=== PATIENT | female | born 1935 | race Asian ===

== ENCOUNTER 2021-06-12 09:36 | Emergency (ER) | payer OTHER ==
--- OUTSIDE RECORDS SUMMARY | 2021-06-12 09:39 | XMS REPORT | Continuity of Care Document ---
:1935 Author Organization [facility] t Address [address] [place] [address] Dr. Willams [address] [place] [id number] Care Team Providers Name Role Phone Unavailable Unavailable Unavailable Payers Payer Name Policy Type Policy Number Effective Date Expiration Date S [facility] [id number] 2021 (MEDICARE 00:00:00 REPLACEMENT HMO) Problems This patient has no known problems. Allergies, Adverse Reactions, Alerts This patient has no known allergies or adverse reactions. Medications This patient has no known medications. Procedures This patient has no known procedures. Encounters Start End Encounter Admission Attending Care Care Encounter Source Date/Time Date/Time Type Type Clinicians Facility Department ID 2021-06-03 2021-06-03 Outpatient DMG DMG [id number] [facility] 09:31:00 09:31:00 1206 [facility] l [facility] Results This patient has no known results.
--- NOTE | 2021-06-12 10:27 | RAD REPORT ---
EXAM DESCRIPTION: RAD - Chest Single View - 06/12/2021 10:15 am CLINICAL HISTORY: CHEST PAIN COMPARISON: No comparisons FINDINGS: Lines: None. Lungs: Irregular airspace opacities in the right upper lobe. Bilateral bronchial wall thickening. The re are a few irregular opacities in the left upper lobe which are nonspecific. Pleural: No significant pleural effusions or pneumothorax. Cardiac: The heart size is within normal limits. Bones: No acute fractures. Other: Atherosclerosis. IMPRESSION: Irregular right upper lobe airspace disease could reflect pneumonia. Recommend 6 week fo llow-up chest radiograph to ensure resolution.
[2021-06-12 10:34] LABS: Protime INR 1.09
[2021-06-12 10:35] LABS: Absolute Lymphocytes (CBC) 0.3 K/uL (0.7-4.9); Basophils % 0.2 % (0-1.3); Hematocrit 31.6 % (36.0-45.0); Lymphocytes % 6.3 % (15.3-44.8); RBC Red Blood Cell Count 3.03 M/uL (3.86-4.86)
[2021-06-12 11:19] LABS: SARS-COV-2 RT PCR NEGATIVE (NEGATIVE)
[2021-06-12 12:44] LABS: ALT/SGPT 36 U/L (12-78); AST/SGOT 34 U/L (15-37); Albumin 2.8 g/dL (3.4-5.0); Alkaline Phosphatase 161 U/L (45-117); BUN Blood Urea Nitrogen 18 mg/dL (7-18); Bicarbonate 23 mmol/L (21-32); Bilirubin Direct 0.6 mg/dL (0-0.2); Bilirubin Total 1.4 mg/dL (0.2-1.0); Glucose Level 184 mg/dL (74-106); Magnesium 2.2 mg/dL (1.8-2.4); NT PRO-BNP 1534 pg/mL (<450); Potassium 4.1 mmol/L (3.5-5.1); Protein, Total 6.3 g/dL (6.4-8.2); Sodium Level 142 mmol/L (136-145); Troponin (Emerg Dept Use Only) < 0.02 ng/mL (0.0-0.045)
[2021-06-12 12:45] LABS: Blood Morphology Comment NOT SEEN (NOT SEEN); Platelet Estimate DECR
[2021-06-12] MEDS ORDERED: CEFTRIAXONE 1000 MG/VIAL ONE (13:12)
[2021-06-12] MEDS ORDERED: NA CHLORIDE 0.9% 100 ML ONE (13:13)
--- NOTE | 2021-06-12 13:16 | ER ---
Nurse's Notes [facility] Name: Edwin Balderas Age: 85 yrs Sex: Female : 1935 Arrival Date: 06/12/2021 Time: 09:44 Bed 17 Private MD: Diagnosis: Unspecified bacterial pneumonia Presentation: 06/12 09:54 Chief complaint: Patient states: Started Jose with "head cold". Cough/congestion ll1 slowly got worse. Fever at night of 101.3. Coronavirus screen: Vaccine status: Patient reports being unvaccinated. Client denies travel out of the [place] in the last 14 days. congestion, cough unrelated to allergies, fatigue, fever, headache, Client presents with at least one sign or symptom that may indicate coronavirus-19. Standard/surgical mask placed on the client. Ebola Screen: Patient denies travel to an Ebola-affected area in the 21 days before illness onset. Initial Sepsis Screen: Does the patient meet any 2 criteria? No. Patient's initial sepsis screen is negative. Does the patient have a suspected source of infection? Yes: Productive cough/pneumonia. Risk Assessment: Do you want to hurt yourself or someone else? Patient reports no desire to harm self or others. Onset of symptoms was June 07, 2021. 09:54 Method Of Arrival: Wheelchair ll1 09:54 Acuity: SHERRY 3 ll1 Triage Assessment: 10:00 General: Appears in no apparent distress. comfortable, Behavior is calm, cooperative, bp appropriate for age. Pain: Complains of pain in head. EENT: Reports nasal congestion. Neuro: Reports headache frontal area. Cardiovascular: No deficits noted. Respiratory: No deficits noted. GI: No signs and/or symptoms were reported involving the gastrointestinal system. : No signs and/or symptoms were reported regarding the genitourinary system. Derm: No deficits noted. Musculoskeletal: No deficits noted. Historical: - Allergies: 09:53 No Known Allergies; ll1 - PMHx: 09:53 liver cirrhosis; Hypertensive disorder; Diabetes mellitus; ll1 - PSHx: 09:53 None; ll1 - Immunization history:: Client reports having NOT received the Covid vaccine. Flu vaccine is not up to date. - Social history:: Smoking status: Patient denies any tobacco usage or history of. Screenin:00 Abuse screen: Denies threats or abuse. Denies injuries from another. Nutritional bp screening: No deficits noted. Tuberculosis screening: No symptoms or risk factors identified. Fall Risk None identified. Assessment: 10:00 General: SEE TRIAGE NOTE. bp 11:00 Reassessment: No changes from previously documented assessment. Patient and/or family bp updated on plan of care and expected duration. Pain level reassessed. 13:00 Reassessment: No changes from previously documented assessment. Patient and/or family bp updated on plan of care and expected duration. Pain level reassessed. PROVIDER AT B/S. 13:44 Reassessment: PT D/C HOME AMBULATORY WITH FAMILY, DX WITH PNEUMONIA. bp Vital Signs: 09:54 BP 142 / 62; Pulse 70; Resp 17; Temp 98.2(O); Pulse Ox 100% on R/A; Weight 50.8 kg; ll1 Height 5 ft. 0 in. (152.40 cm); 11:00 BP 146 / 59; Pulse 67; Resp 22; Pulse Ox 98% ; bp 12:00 BP 144 / 56; Pulse 71; Resp 23; Pulse Ox 96% ; bp 13:00 BP 135 / 53; Pulse 70; Resp 24; Pulse Ox 98% ; bp 09:54 Body Mass Index 21.87 (50.80 kg, 152.40 cm) ll1 ED Course: 09:44 Patient arrived in ED. am2 09:46 Rayshawn Gonzalez, RN is Primary Nurse. bp 09:47 Luis Moore PA is PHCP. [facility] 09:47 Itz Lynn MD is Attending Physician. [facility] 09:53 Arm band placed on Patient placed in an exam room, on a stretcher. ll1 09:56 Triage completed. ll1 10:00 Patient has correct armband on for positive identification. Bed in low position. Call bp light in reach. Side rails up X2. Adult w/ patient. library monitor on. Pulse ox on. NIBP on. 10:15 XRAY Chest (1 view) In Process Unspecified. EDMS 10:15 Inserted saline lock: 20 gauge in right forearm, using aseptic technique. Blood bp collected. 10:38 EKG done, by ED staff, reviewed by Luis DILL. [facility] 13:44 No provider procedures requiring assistance completed. IV discontinued, intact, bp bleeding controlled, No redness/swelling at site. Pressure dressing applied. Patient maintains SpO2 saturation greater than 95% on room air. Administered Medications: 13:10 Drug: Rocephin (cefTRIAXone) 1 grams Route: IV; Rate: calculated rate; Site: right bp forearm; 13:44 Follow up: IV Status: Completed infusion; IV Intake: 100ml bp Intake: 13:44 IV: 100ml; Total: 100ml. bp Outcome: 13:16 Discharge ordered by . pavel 13:44 Discharged to home ambulatory, with family. bp 13:44 Condition: stable 13:44 Discharge instructions given to patient, family, Instructed on discharge instructions, follow up and referral plans. medication usage, Demonstrated understanding of instructions, follow-up care, medications, Prescriptions given X 2. 13:45 Patient left the ED. bp Signatures: Dispatcher [employer] EDMS Luis Moore PA PA jmm Moreno, Amanda am2 Lilliam Alaniz 3 Rayshawn Gonzalez RN RN Keila Yuen RN RN ll1
--- NOTE | 2021-06-12 13:16 | EDPHYS ---
Physician Documentation [facility] Name: Edwin Balderas Age: 85 yrs Sex: Female : 1935 Arrival Date: 06/12/2021 Time: 09:44 Bed 17 Private MD: ED Physician Itz Lynn HPI: 06/12 09:57 This 85 yrs old Female presents to ER via Wheelchair with complaints of Chest jmm Pressure, Headache, Fever. 09:57 The patient or guardian reports cough. Onset: The symptoms/episode began/occurred jmm gradually, 5 day(s) ago. Modifying factors: The symptoms are alleviated by nothing. the symptoms are aggravated by nothing. Associated signs and symptoms: Pertinent positives: chest pain, with cough, with breathing, fever, Pertinent negatives: vomiting. Historical: - Allergies: 09:53 No Known Allergies; ll1 - PMHx: 09:53 liver cirrhosis; Hypertensive disorder; Diabetes mellitus; ll1 - PSHx: 09:53 None; ll1 - Immunization history:: Client reports having NOT received the Covid vaccine. Flu vaccine is not up to date. - Social history:: Smoking status: Patient denies any tobacco usage or history of. ROS: 09:57 Constitutional: Positive for chills, fever. [facility] 09:57 Cardiovascular: Positive for chest pain, with cough. 09:57 Respiratory: Positive for cough, shortness of breath. 09:57 All other systems are negative. Exam: 09:57 Constitutional: This is a well developed, well nourished patient who is awake, alert, jmm and in no acute distress. Head/Face: atraumatic. Eyes: EOMI, no conjunctival erythema appreciated ENT: Moist Mucus Membranes Neck: Trachea midline, Supple 09:57 Abdomen/GI: Non distended, soft Back: Normal ROM 09:57 Chest/axilla: Inspection: normal, Palpation: is normal. 09:57 Cardiovascular: Rate: normal, Rhythm: regular. 09:57 Respiratory: the patient does not display signs of respiratory distress, Respirations: normal, Breath sounds: are clear throughout. 09:57 Skin: Appearance: Color: normal in color. 09:57 Neuro: Motor: is normal. 09:57 Psych: Behavior/mood is pleasant, cooperative. 10:38 ECG was reviewed by the Attending Physician. [facility] Vital Signs: 09:54 BP 142 / 62; Pulse 70; Resp 17; Temp 98.2(O); Pulse Ox 100% on R/A; Weight 50.8 kg; ll1 Height 5 ft. 0 in. (152.40 cm); 11:00 BP 146 / 59; Pulse 67; Resp 22; Pulse Ox 98% ; bp 12:00 BP 144 / 56; Pulse 71; Resp 23; Pulse Ox 96% ; bp 13:00 BP 135 / 53; Pulse 70; Resp 24; Pulse Ox 98% ; bp 09:54 Body Mass Index 21.87 (50.80 kg, 152.40 cm) ll1 MDM: 09:56 Patient medically screened. [facility] 13:15 Data reviewed: vital signs, nurses notes. Counseling: I had a detailed discussion with pavel the patient and/or guardian regarding: the historical points, exam findings, and any diagnostic results supporting the discharge/admit diagnosis, lab results, radiology results, the need for outpatient follow up, to return to the emergency department if symptoms worsen or persist or if there are any questions or concerns that arise at home. ED course: Alert nontoxic in appearance in the ED. No signs of respiratory distress. Patient elected to go home opposed to inpatient admission for observation. Family given strict return precautions. Family understood agrees plan of care.. 06/12 09:50 Order name: Basic Metabolic Panel [facility] 06/12 09:50 Order name: CBC with Diff [facility] 06/12 09:50 Order name: LFT's [facility] 06/12 09:50 Order name: Magnesium [facility] 06/12 09:50 Order name: NT PRO-BNP [facility] 06/12 09:50 Order name: PT-INR; Complete Time: 10:36 [facility] 06/12 09:50 Order name: Troponin (emerg Dept Use Only); Complete Time: 12:46 [facility] 06/12 09:50 Order name: Procalcitonin; Complete Time: 11:14 [facility] 06/12 09:50 Order name: Lactate; Complete Time: 11:14 [facility] 06/12 09:50 Order name: Blood Culture Adult (2) [facility] 06/12 09:50 Order name: Basic Metabolic Panel; Complete Time: 12:46 [facility] 06/12 09:50 Order name: CBC with Automated Diff; Complete Time: 12:46 [facility] 06/12 09:50 Order name: XRAY Chest (1 view); Complete Time: 10:28 [facility] 06/12 09:50 Order name: EKG; Complete Time: 09:51 [facility] 06/12 09:50 Order name: Cardiac monitoring; Complete Time: 10:27 [facility] 06/12 09:50 Order name: EKG - Nurse/Tech; Complete Time: 10:33 [facility] 06/12 09:50 Order name: IV Saline Lock; Complete Time: 10:27 [facility] 06/12 09:50 Order name: Labs collected and sent; Complete Time: 10:26 [facility] 06/12 09:50 Order name: O2 Per Protocol; Complete Time: 10:26 [facility] 06/12 09:50 Order name: O2 Sat Monitoring; Complete Time: 10:26 [facility] 06/12 09:50 Order name: Liver (Hepatic) Function; Complete Time: 12:46 ED[facility] 06/12 09:50 Order name: Magnesium; Complete Time: 12:46 EDMS 06/12 09:50 Order name: NT PRO-BNP; Complete Time: 12:46 EDMS 06/12 09:51 Order name: Urine Culture [facility] 06/12 10:34 Order name: COVID-19/FLU A+B; Complete Time: 11:19 EDMS 06/12 12:45 Order name: Manual Differential; Complete Time: 12:46 EDMS EC:38 Rate is 66 beats/min. Rhythm is regular. QRS Sells is Normal. ME interval is normal. QRS jmm interval is normal. QT interval is normal. No Q waves. T waves are Inverted in lead aVL. No ST changes noted. Administered Medications: 13:10 Drug: Rocephin (cefTRIAXone) 1 grams Route: IV; Rate: calculated rate; Site: right bp forearm; 13:44 Follow up: IV Status: Completed infusion; IV Intake: 100ml bp Disposition Summary: 06/12/21 13:16 Discharge Ordered Location: Home [facility] Condition: Stable [facility] Diagnosis - Unspecified bacterial pneumonia [facility] Followup: pavel - With: Private Physician - When: 2 - 3 days - Reason: Recheck today's complaints, Continuance of care, Re-evaluation by your physician Discharge Instructions: - Discharge Summary Sheet [facility] - Community-Acquired Pneumonia, Adult [facility] Forms: - Medication Reconciliation Form [facility] - Thank You Letter [facility] - Antibiotic Education [facility] - Prescription Opioid Use [facility] Prescriptions: - albuterol sulfate 90 mcg/actuation Inhalation HFA aerosol inhaler - inhale 2 puff by INHALATION route every 4-6 hours; 1 Pump; Refills: 0, Product [facility] Selection Permitted - levofloxacin 750 mg Oral Tablet - take 1 tablet by ORAL route once daily for 10 days; 10 tablet; Refills: 0, [facility] Product Selection Permitted Addendum: 06/15/2021 07:15 Co-signature as Attending Physician, Itz Lynn MD. r n Signatures: Dispatcher [employer] EDMS Luis Moore PA PA jmm Nieto, Roman, MD MD rn Rayshawn Gonzalez, RN RN bp Keila Shepard RN RN ll1 Corrections: (The following items were deleted from the chart) 06/12 10:34 09:51 SARS-COV-2 RT PCR+MOL.LAB.BRZ ordered. EDMS EDMS 10:35 09:51 Influenza Screen (A \T\ B)+BA.LAB.BRZ ordered. EDMS EDMS 13:44 09:50 Urine Dipstick-Ancillary ordered. [facility] bp
[2021-06-12 13:50] VITALS: TEMP 98.2
[2021-06-12 13:54] VITALS: BP 135/53; O2SAT 98
== END 2021-06-12 13:45 | disposition home or self-care (01) ==
LOC: ER 09:36
DX: J15.9 Unspecified bacterial pneumonia (principal); K74.60 Unspecified cirrhosis of liver; I10 Essential (primary) hypertension; E11.9 Type 2 diabetes mellitus without complications; Z20.822 Contact with and (suspected) exposure to COVID-19
CPT/HCPCS: 96365; 93005; 87040 ×2; 85025; 80048; 36415; 83735; 85610; 80076; 83605; 84484; 84145; 83880; 0240U; 71045; 99285

== ENCOUNTER 2021-08-10 11:22 | Inpatient (IN) | payer MEDICARE ==
--- OUTSIDE RECORDS SUMMARY | 2021-08-10 11:24 | XMS REPORT | Continuity of Care Document ---
:1935 Author Organization [facility] t Address [address] [place] [address] Dr. Watkins. [address] [place] [address] Care Team Providers Name Role Phone Pcp, Patient Does Not Have A Primary Care Physician +[id number] Green [employer] Attending Clinician Unknown Attending Clinician Unavailable Keyla Reza MD Attending Clinician Payers Payer Name Policy Type Policy Number Effective Date Expiration Date S [facility] [employer] [id number] 2021 (MEDICARE 00:00:00 REPLACEMENT HMO) Problems Condition Condition Condition Status Onset Resolution Last Treating Co mments Source Name Details Category Date Date Treatment Clinician Date No known No known Disease Unive rs active active ity of problems problems [facility] Allergies, Adverse Reactions, Alerts This patient has no known allergies or adverse reactions. Social History Social Habit Start Date Stop Date Quantity Comments Source Exposure to Not sure [facility] SARS-CoV-2 (event) Medica l Branch Sex Assigned At [birth year] [facility] 00:00:00 00:00:00 Medical Branch Smoking Status Start Date Stop Date Source Unknown if ever smoked [facility] Medications Ordered Filled Start Stop Current Ordering Indication Dosage Frequency Signature Comments Components Source Medication Medication Date Date Medication? Clinician (SIG) Name Name benzonatate Yes [id number] 100mg Take 1 [facility] 100 mg 2-01 capsule by ity of capsule 00:00: mouth [place] 00 every 8 Medical (eight) Branch hours as needed for Cough. Vital Signs Vital Name Observation Time Observation Value Comments Source Diastolic blood 2021-07-30 16:03:00 74 mm[Hg] Unive rsity of [facility] Heart rate 2021-07-30 16:03:00 74 /min [facility] Body temperature 2021-07-30 16:03:00 37.17 [facility] 2021-07-30 16:03:00 20 /min [facility] Body height 2021-07-30 16:03:00 149.9 cm [facility] Body weight 2021-07-30 16:03:00 48.988 kg [facility] BMI 2021-07-30 16:03:00 21.81 kg/m2 [facility] Oxygen saturation in 2021-07-30 16:03:00 95 /min [facility] Arterial blood by [facility] Pulse oximetry [place] Systolic blood 2021-07-30 16:03:00 125 mm[Hg] Univer sity of pressure [facility] Procedures Procedure Date / Time Performing Clinician Source Performed COVID-19 (MOLECULAR 2021-07-30 16:06:00 Edenilson Chi [facility] TESTING [facility] NUCLEIC ACID AMPLIFICATION) LAB ONLY COVID 2021-07-30 16:06:00 Edenilson Chi [facility] o [facility] [place] INTERPRETATION [facility] Encounters Start End Encounter Admission Attending Care Care Encounter Source Date/Time Date/Time Type Type Clinicians Facility Department ID 2021-07-30 2021-07-30 Urgent Green, Nelly [facility] [id number] [facility] 10:00:00 10:05:16 Care Unknown, Attending HEALTH [id number] ity of Eren Reza [id number] [place] ANTHONY?BLEA [id number] Wy dical [address] MEDICAL OFFICE BUILDING 2021-06-03 2021-06-03 Outpatient DMG DMG [id number] [facility] 09:31:00 09:31:00 1206 [facility] l [facility] Results This patient has no known results.
[2021-08-10 12:19] LABS: Absolute Lymphocytes (CBC) 0.2 K/uL (0.7-4.9); Hematocrit 28.9 % (36.0-45.0); Lymphocytes % 3.9 % (15.3-44.8); MPV 9.6 fL (7.6-11.3); Protime INR 1.14; RBC Red Blood Cell Count 2.82 M/uL (3.86-4.86)
--- NOTE | 2021-08-10 12:40 | RAD REPORT ---
EXAM DESCRIPTION: RAD - Chest Single View - 08/10/2021 12:31 pm CLINICAL HISTORY: SOB COMPARISON: Chest Single View dated 08/06/2021; Chest Single View dated 08/04/2021; Chest Single View da abilio 06/12/2021 FINDINGS: Lines: None. Lungs: Background of chronic interstitial changes. Increasing opacification bilaterally, worse on the left. No adelina consolidation. No edema. Pleural: No significant pleural effusions or pneumothorax. Cardiac: Mild cardiomegaly. Bones: No acute fractures. Other: Atherosclerosis . IMPRESSION: Mild increasing airspace disease bilaterally concerning for pneumonia.
[2021-08-10 12:42] LABS: ALT/SGPT 40 U/L (12-78); AST/SGOT 41 U/L (15-37); Albumin 2.2 g/dL (3.4-5.0); Alkaline Phosphatase 188 U/L (45-117); BUN Blood Urea Nitrogen 27 mg/dL (7-18); Bicarbonate 20 mmol/L (21-32); Bilirubin Direct 0.4 mg/dL (0-0.2); Glucose Level 192 mg/dL (74-106); Magnesium 1.8 mg/dL (1.8-2.4); NT PRO-BNP 1612 pg/mL (<450); Potassium 3.8 mmol/L (3.5-5.1); Protein, Total 5.9 g/dL (6.4-8.2); Sodium Level 136 mmol/L (136-145)
[2021-08-10 12:46] LABS: Blood Morphology Comment NOT SEEN (NOT SEEN); Platelet Estimate DECR
[2021-08-10] MEDS ORDERED: METHYLPREDNISOLONE 40 MG INJ ONE (13:38)
--- NOTE | 2021-08-10 14:00 | P.HP ---
Certification for Inpatient Patient admitted to: Inpatient With expected LOS: >2 Midnights Practitioner: I am a practitioner with admitting privileges, knowledge of patient current condition, hospital course, and medical plan of care. Services: Services provided to patient in accordance with Admission requirements found in Title 42 Section 412.3 of the Code of Federal Regulations Patient History Date of Service: 08/10/21 Reason for admission: Shortness of breath History of Present Illness: 86-year-old woman with a history of diabetes and liver cirrhosis was brought to the emergency department due to progressive worsening shortness of breath and cough. Patient has had multiple ED visits for cough and shortness of breath since she was diagnosed with Covid 19 infection on July 16. Daughter report she now has poor oral intake. She denied fever or chest pain. Chest x-ray done in the emergency department demonstrate mild increase in bilateral infiltrate. Patient was hypoxic on room air on arrival and was requiring 4 L of oxygen to maintain SPO2 above 90%. Daughter is concerned that patient have had pneumonia for prolonged period of time. Daughter reports fever at home. Repeat COVID-19 test is pending. UA is positive for nitrite, procalcitonin elevated. Daughter denies any problem with swallowing. She has no leukocytosis, mildly elevated. Patient is hospitalized for further management. - Past Medical/Surgical History -: Liver cirrhosis -: Diabetes -: Back surgery - Social History Smoking Status: Former smoker Alcohol use: No CD- Drugs: No Place of Residence: Home Review of Systems Other: Patient denies any abdominal pain or diarrhea or nausea or vomiting. Except as documented, all other systems reviewed and negative. Physical Examination - Physical Exam General: Alert, In no apparent distress, Oriented x3 HEENT: Atraumatic, PERRLA, Mucous membr. moist/pink, EOMI, Sclerae nonicteric Neck: Supple, JVD not distended Respiratory: Normal air movement, Crackles/rales Cardiovascular: No edema, Regular rate/rhythm, Normal S1 S2, No murmurs Gastrointestinal: Normal bowel sounds, Soft and benign, Non-distended, No tende rness Musculoskeletal: No swelling, No tenderness Integumentary: No rashes, No erythema, No cyanosis Neurological: Normal speech, Normal strength at 5/5 x4 extr, Cranial nerves 3-12 intact Lymphatics: No axilla or inguinal lymphadenopathy - Studies Laboratory Data (last 24 hrs) 08/10/21 11:53: PT 13.1 H, INR 1.14 08/10/21 11:53: WBC 6.20, Hgb 9.7 L, Hct 28.9 L, Plt Count 64 L D 08/10/21 11:53: Sodium 136, Potassium 3.8, BUN 27 H, Creatinine 0.59, Glucose 192 H, Magnesium 1.8, Total Bilirubin 1.0, AST 41 H, ALT 40, Alkaline Phosphatase 188 H Assessment and Plan - Problems (Diagnosis) (1) Pneumonia due to 2019 novel coronavirus Current Visit: Yes Status: Acute (2) Acute respiratory failure with hypoxia Current Visit: Yes Status: Acute (3) Diabetes mellitus type 2 in nonobese Current Visit: Yes Status: Acute (4) Liver cirrhosis Current Visit: Yes Status: Acute (5) UTI (urinary tract infection) Current Visit: Yes Status: Acute (6) Anemia Current Visit: Yes Status: Acute - Plan Admit to the medical floor. Covid protocol initiated with IV steroid. Vitamin C and zinc supplementation. Monitor inflammatory markers. Consult to pulmonary Titrate oxygen. There was a concern for secondary bacterial infection given elevated procalcitonin. There is also some evidence of UTI. Will cover with empiric antibiotics-Levaquin and Rocephin. Follow urine culture. Insulin sliding scale for glucose management. Hold Metformin. Anemia is likely chronic. Monitor CBC. Speech therapy for dysphagia screen. Will consult and resume other home medications. - Advance Directives Does patient have a Living Will: No Does patient have a Durable POA for Healthcare: No
--- NOTE | 2021-08-10 14:06 | EDPHYS ---
Physician Documentation [facility] Name: Edwin Balderas Age: 86 yrs Sex: Female : 1935 Arrival Date: 08/10/2021 Time: 11:23 Bed 2 Private MD: ED Physician Hardik Quintanilla HPI: 08/10 11:40 This 86 yrs old Female presents to ER via Wheelchair with complaints of Weakness, jmm Breathing Difficulty. 11:40 The patient has shortness of breath at rest. jmm 11:40 Onset: The symptoms/episode began/occurred this morning. Duration: The symptoms are jmm continuous, but are steadily getting better. The patient's shortness of breath is aggravated by nothing, is alleviated by nothing. Associated signs and symptoms: Pertinent positives: non-productive cough, Pertinent negatives: fever. The patient has experienced similar episodes in the past. This is an 86-year-old female with history of diabetes mellitus, hypertension, liver cirrhosis the presents emerged department with hypoxia according to the daughter. Daughter states that the patient was difficult to wake up and appeared short of breath earlier today, took pulse oximetry of her mother which revealed her oxygen saturation was in the mid 60s. Daughter states she gave the patient some neb treatments which brant the patient's oxygen saturation into the 70s but decided to bring the patient in. Patient was recently diagnosed with coronavirus and this is her third visit. Is also states the patient is not eating or drinking as much.. Historical: - Allergies: 11:38 Codeine; ph - PMHx: 11:38 diabetes mellitus; Hypertensive disorder; Liver cirrhosis; ph - Immunization history:: Client reports having NOT received the Covid vaccine. - Social history:: Smoking status: Patient denies any tobacco usage or history of. ROS: 11:40 Cardiovascular: Negative for chest pain, palpitations, and edema, Abdomen/GI: Negative jmm for abdominal pain, nausea, vomiting, diarrhea, and constipation. 11:40 Constitutional: Positive for poor PO intake. 11:40 Respiratory: Positive for shortness of breath. 11:40 All other systems are negative. Exam: 11:40 Constitutional: This is a well developed, well nourished patient who is awake, alert, jmm and in no acute distress. Head/Face: atraumatic. Eyes: EOMI, no conjunctival erythema appreciated ENT: Moist Mucus Membranes Neck: Trachea midline, Supple Chest/axilla: Normal chest wall appearance and motion. Cardiovascular: Regular rate and rhythm. No edema appreciated Respiratory: Normal respirations, no respiratory distress appreciated Abdomen/GI: Non distended, soft Back: Normal ROM Skin: General appearance color normal MS/ Extremity: Moves all extremities, no obvious deformities appreciated, no edema noted to the lower extremities Neuro: Awake and alert Psych: Behavior is normal, Mood is normal, Patient is cooperative and pleasant Vital Signs: 11:35 BP 116 / 67; Pulse 82; Resp 26; Temp 98.6(TE); Pulse Ox 82% on R/A; Weight 48.08 kg; ph Height 4 ft. 11 in. (149.86 cm); 12:30 BP 106 / 53; Pulse 80; Resp 20; Pulse Ox 96% on 4 lpm NC; vg1 13:30 BP 100 / 52; Pulse 79; Resp 22; Pulse Ox 96% on 4 lpm NC; vg1 14:30 BP 104 / 54; Pulse 78; Resp 24; Pulse Ox 96% on 4 lpm NC; vg1 15:30 BP 115 / 61; Pulse 74; Resp 24; Pulse Ox 98% on 4 lpm NC; vg1 16:30 BP 106 / 59; Pulse 73; Resp 22; Pulse Ox 99% on 4 lpm NC; vg1 11:35 Body Mass Index 21.41 (48.08 kg, 149.86 cm) ph 11:35 improved to 94% on 2L NC ph MDM: 11:40 Patient medically screened. [facility] 14:04 Data reviewed: vital signs, nurses notes. Counseling: I had a detailed discussion with [facility] the patient and/or guardian regarding: the historical points, exam findings, and any diagnostic results supporting the discharge/admit diagnosis, lab results, radiology results, the need for further work-up and treatment in the hospital. ED course: I discussed the patient with Dr. Marino whom accepted to his service. 08/10 11:54 Order name: Basic Metabolic Panel; Complete Time: 12:42 [facility] 08/10 11:54 Order name: CBC with Diff [facility] 08/10 11:54 Order name: LFT's; Complete Time: 12:42 [facility] 08/10 11:54 Order name: Magnesium; Complete Time: 12:42 [facility] 08/10 11:54 Order name: NT PRO-BNP; Complete Time: 12:42 [facility] 08/10 11:54 Order name: PT-INR; Complete Time: 12:21 [facility] 08/10 11:54 Order name: Troponin HS; Complete Time: 12:42 [facility] 08/10 11:54 Order name: COVID-19/FLU A+B (Document "Date of Onset" if Symptomatic); Complete Time: [facility] 15:00 08/10 11:54 Order name: Lactate; Complete Time: 12:41 [facility] 08/10 11:54 Order name: Blood Culture Adult (2) [facility] 08/10 11:54 Order name: Procalcitonin; Complete Time: 13:13 [facility] 08/10 12:46 Order name: Manual Differential [facility] 08/10 14:59 Order name: Urine Dipstick-Ancillary; Complete Time: 15:00 [facility] 08/10 15:50 Order name: Lactate Sepsis 2 HR Follow-up; Complete Time: 15:53 [facility] 08/10 11:54 Order name: XRAY Chest (1 view); Complete Time: 12:41 [facility] 08/10 11:54 Order name: EKG; Complete Time: 11:54 [facility] 08/10 11:54 Order name: Cardiac monitoring; Complete Time: 12:05 [facility] 08/10 11:54 Order name: EKG - Nurse/Tech; Complete Time: 11:55 [facility] 08/10 11:54 Order name: IV Saline Lock; Complete Time: 12:05 [facility] 08/10 11:54 Order name: Labs collected and sent; Complete Time: 12:05 [facility] 08/10 11:54 Order name: O2 Per Protocol; Complete Time: 12:05 [facility] 08/10 11:54 Order name: O2 Sat Monitoring; Complete Time: 12:05 [facility] 08/10 13:25 Order name: Urine Dipstick-Ancillary (obtain specimen); Complete Time: 14:58 [facility] Administered Medications: 13:40 Drug: SOLU-Medrol (methylPrednisoLONE) 40 mg Route: IVP; Site: right wrist; vg1 15:03 Follow up: Response: No adverse reaction vg1 17:07 Drug: Rocephin (cefTRIAXone) 2 grams Route: IV; Rate: calculated rate; Site: right vg1 wrist; 18:12 Follow up: IV Status: Completed infusion vg1 Disposition Summary: 08/10/21 14:06 Hospitalization Ordered Hospitalization Status: Inpatient Admission [facility] Provider: Adam Marino Location: Telemetry/MedSur (Inpatient) m Condition: Stable jmm Problem: new jmm Symptoms: have improved jmm Bed/Room Type: Standard [facility] Room Assignment: 414(08/10/21 15:42) dw Diagnosis - Coronavirus infection, unspecified - Hypoxia jm Forms: - Medication Reconciliation Form jmm - SBAR form [facility] Addendum: 08/12/2021 06:28 Co-signature as Attending Physician, Hardik Quintanilla MD I agree with the assessment and k dr plan of care. Signatures: Dispatcher [employer] Precious Galvan RN RN dw Rittger, Kevin, MD MD [facility] Luis Moore PA PA jmm Hall, Patricia, RN RN Jessi Quick RN RN vg1 Corrections: (The following items were deleted from the chart) 08/10 15:42 14:06 jmm dw
--- NOTE | 2021-08-10 14:06 | ER ---
Nurse's Notes [facility] Name: Edwin Balderas Age: 86 yrs Sex: Female : 1935 Arrival Date: 08/10/2021 Time: 11:23 Bed 2 Private MD: Diagnosis: Coronavirus infection, unspecified-Hypoxia Presentation: 08/10 11:35 Chief complaint: Patient's son or daughter states: Covid + on 07/30, Spo2 at home low, ph 82% RA upon arrival to ED, pt also tachypneic, daughter reports fever of 100.9 this morning, gave DayQuil. Coronavirus screen: congestion, difficulty breathing, fever, shortness of breath, Client presents with at least one sign or symptom that may indicate coronavirus-19. Standard/surgical mask placed on the client. Provider contacted for isolation considerations. Client reports previous positive COVID test result. Date of collection: July 30, 2021. Ebola Screen: No symptoms or risks identified at this time. No acute neurological deficit is noted. Pre-hospital glucose is not applicable to this patient. Initial Sepsis Screen: Does the patient meet any 2 criteria? No. Patient's initial sepsis screen is negative. Does the patient have a suspected source of infection? Yes: Productive cough/pneumonia. Risk Assessment: Do you want to hurt yourself or someone else? Patient reports no desire to harm self or others. Onset of symptoms was August 10, 2021. 11:35 Method Of Arrival: Wheelchair ph 11:35 Acuity: SHERRY 3 ph Stroke Activation: Symptom onset > 6 hours Physician: Stroke Attending; Name: ; Notified At: ; Arrived At: Physician: Chief Stroke Resident; Name: ; Notified At: ; Arrived At: Physician: Stroke Resident; Name: ; Notified At: ; Arrived At: Physician: ED Attending; Name: ; Notified At: ; Arrived At: Physician: ED Resident; Name: ; Notified At: ; Arrived At: Historical: - Allergies: 11:38 Codeine; ph - PMHx: 11:38 diabetes mellitus; Hypertensive disorder; Liver cirrhosis; ph - Immunization history:: Client reports having NOT received the Covid vaccine. - Social history:: Smoking status: Patient denies any tobacco usage or history of. Screenin:08 Abuse screen: Denies threats or abuse. Nutritional screening: No deficits noted. vg1 Tuberculosis screening: No symptoms or risk factors identified. Fall Risk No fall in past 12 months (0 pts). No secondary diagnosis (0 pts). IV access (20 points). Ambulatory Aid- None/Bed Rest/Nurse Assist (0 pts). Gait- Normal/Bed Rest/Wheelchair (0 pts) Mental Status- Oriented to own ability (0 pts). Total Domínguez Fall Scale indicates No Risk (0-24 pts). Assessment: 11:30 General: Appears in no apparent distress. comfortable, Behavior is calm, cooperative. vg1 Pain: Denies pain. Neuro: Level of Consciousness is awake, alert, obeys commands, Oriented to person, place, time, situation. Cardiovascular: Patient's skin is warm and dry. Respiratory: Airway is patent Respiratory effort is even, unlabored, Respiratory pattern is tachypnea Parent/caregiver reports the patient having cough that is tested positive for covid on July 30 and was recently seen in ED on 08/06/2021. GI: No signs and/or symptoms were reported involving the gastrointestinal system. : No signs and/or symptoms were reported regarding the genitourinary system. EENT: No signs and/or symptoms were reported regarding the EENT system. Derm: Skin is intact, Skin is pink, warm \T\ dry. Musculoskeletal: Circulation, motion, and sensation intact. 13:32 Reassessment: Patient appears in no apparent distress at this time. No changes from vg1 previously documented assessment. Patient and/or family updated on plan of care and expected duration. Pain level reassessed. Patient is alert, oriented x 3, equal unlabored respirations, skin warm/dry/pink. Patient denies pain at this time. 14:35 Reassessment: Patient appears in no apparent distress at this time. No changes from vg1 previously documented assessment. 15:30 Reassessment: Patient appears in no apparent distress at this time. No changes from vg1 previously documented assessment. Patient and/or family updated on plan of care and expected duration. Pain level reassessed. Patient is alert, oriented x 3, equal unlabored respirations, skin warm/dry/pink. 16:38 Reassessment: Patient appears in no apparent distress at this time. No changes from vg1 previously documented assessment. Patient and/or family updated on plan of care and expected duration. Pain level reassessed. pt resting with eyes closed Patient denies pain at this time. Vital Signs: 11:35 BP 116 / 67; Pulse 82; Resp 26; Temp 98.6(TE); Pulse Ox 82% on R/A; Weight 48.08 kg; ph Height 4 ft. 11 in. (149.86 cm); 12:30 BP 106 / 53; Pulse 80; Resp 20; Pulse Ox 96% on 4 lpm NC; vg1 13:30 BP 100 / 52; Pulse 79; Resp 22; Pulse Ox 96% on 4 lpm NC; vg1 14:30 BP 104 / 54; Pulse 78; Resp 24; Pulse Ox 96% on 4 lpm NC; vg1 15:30 BP 115 / 61; Pulse 74; Resp 24; Pulse Ox 98% on 4 lpm NC; vg1 16:30 BP 106 / 59; Pulse 73; Resp 22; Pulse Ox 99% on 4 lpm NC; vg1 11:35 Body Mass Index 21.41 (48.08 kg, 149.86 cm) ph 11:35 improved to 94% on 2L NC ph ED Course: 11:23 Patient arrived in ED. rg4 11:27 Luis Moore PA is PHCP. jmm 11:27 Hardik Quintanilla MD is Attending Physician. jmm 11:30 Jessi Quick, RN is Primary Nurse. vg1 11:30 Patient has correct armband on for positive identification. Placed in gown. Bed in low vg1 position. Call light in reach. Side rails up X2. Adult w/ patient. 11:38 Triage completed. ph 11:38 Arm band placed on Patient placed in an exam room, on a stretcher, on oxygen. ph 11:53 Initial lab(s) drawn, by me, sent to lab. First set of blood cultures drawn by me. vg1 11:55 EKG done, by ED staff, reviewed by Luis DILL. mb7 12:08 Inserted saline lock: 22 gauge in right wrist, using aseptic technique. Blood collected.vg1 12:31 XRAY Chest (1 view) In Process Unspecified. EDMS 14:05 Adam Marino is Hospitalizing Provider. jmm Administered Medications: 13:40 Drug: SOLU-Medrol (methylPrednisoLONE) 40 mg Route: IVP; Site: right wrist; vg1 15:03 Follow up: Response: No adverse reaction vg1 17:07 Drug: Rocephin (cefTRIAXone) 2 grams Route: IV; Rate: calculated rate; Site: right vg1 wrist; 18:12 Follow up: IV Status: Completed infusion vg1 Outcome: 14:06 Decision to Hospitalize by Provider. pavel 18:12 Patient left the ED. vg1 Signatures: Dispatcher [employer] EDMS Luis Moore PA PA jmm Hall, Patricia RN RN Lisa [email or web address] Jessi Quick RN RN 1 Kavita Paulino mb7 Corrections: (The following items were deleted from the chart) 16:42 16:30 BP 106 / 59; Pulse 73bpm; Resp 16bpm; Pulse Ox 99% 4 lpm Nasal Cannula; vg1 vg1
[2021-08-10 14:43] LABS: SARS-COV-2 RT PCR POSITIVE (NEGATIVE)
[2021-08-10 14:58] LABS: Urine Blood Negative (Negative); Urine Glucose Negative (Negative); Urine Protein 1+ (Negative); Urine Specific Gravity 1.015 (1.005-1.030); Urine pH 6.5 (5.0-7.0)
[2021-08-10] MEDS ORDERED: CEFTRIAXONE 1000 MG/VIAL ONE (16:58)
[2021-08-10] MEDS ORDERED: NA CHLORIDE 0.9% 100 ML IV ONE (16:59)
[2021-08-10] MEDS ORDERED: ONDANSETRON 4 MG/2 ML VIAL IV PRN (19:12)
[2021-08-10] MEDS ORDERED: Levofloxacin 750mg IV 750 MG/150 ML BAG IV SCH (19:12)
[2021-08-10] MEDS ORDERED: GLUCAGON 1 MG/VIAL IM PRN (19:12)
[2021-08-10] MEDS ORDERED: ACETAMINOPHEN 500 MG TAB PO PRN (19:12)
[2021-08-10] MEDS ORDERED: D50W 25 GM/50 ML SYRINGE IV PRN (19:12)
[2021-08-10 19:54] VITALS: BMI 21.4
[2021-08-10] MEDS: METHYLPREDNISOLONE 40 MG INJ IV SCH (20:16)
[2021-08-10] MEDS: FAMOTIDINE 20 MG/2 ML VIAL IV SCH (20:16)
[2021-08-10] MEDS: ASCORBIC ACID 500 MG TABLET PO SCH (20:17)
[2021-08-10] MEDS: INSULIN -REGULAR HUMAN 50 UNIT/0.5 ML ML SQ SCH ×2 (21:00→21:19)
[2021-08-11 05:20] LABS: Absolute Lymphocytes (CBC) 0.1 K/uL (0.7-4.9); Hematocrit 29.7 % (36.0-45.0); Lymphocytes % 7.7 % (15.3-44.8); RBC Red Blood Cell Count 2.92 M/uL (3.86-4.86)
[2021-08-11 05:41] LABS: ALT/SGPT 34 U/L (12-78); AST/SGOT 26 U/L (15-37); Albumin 2.1 g/dL (3.4-5.0); Alkaline Phosphatase 174 U/L (45-117); BUN Blood Urea Nitrogen 19 mg/dL (7-18); Bicarbonate 23 mmol/L (21-32); Bilirubin Total 0.7 mg/dL (0.2-1.0); Ferritin 732.8 ng/mL (8-388); Glucose Level 185 mg/dL (74-106); HDL Cholesterol 45 mg/dL (40-60); LDL Cholesterol, Calculated 24 (<130); Magnesium 2.1 mg/dL (1.8-2.4); Phosphorus 2.9 mg/dL (2.5-4.9); Potassium 4.1 mmol/L (3.5-5.1); Protein, Total 5.8 g/dL (6.4-8.2); Sodium Level 139 mmol/L (136-145)
[2021-08-11] MEDS: INSULIN -REGULAR HUMAN 50 UNIT/0.5 ML ML SQ SCH ×4 (08:30→21:30)
[2021-08-11] MEDS ORDERED: ENOXAPARIN 40 MG/0.4 ML SQ SCH (09:00)
[2021-08-11] MEDS ORDERED: CEFTRIAXONE 1,000 MG in NA CHLORIDE 0.9% 50 ML IVPB SCH (09:00)
[2021-08-11] MEDS: METHYLPREDNISOLONE 40 MG INJ IV SCH ×2 (09:09→20:32)
[2021-08-11] MEDS: ASCORBIC ACID 500 MG TABLET PO SCH ×2 (09:11→20:33)
[2021-08-11] MEDS: ZINC SULFATE 220 MG CAP PO SCH (09:11)
[2021-08-11] MEDS: VITAMIN D 5,000 UNIT CAP PO SCH (09:11)
[2021-08-11] MEDS: FAMOTIDINE 20 MG/2 ML VIAL IV SCH ×2 (09:11→20:33)
--- NOTE | 2021-08-11 09:53 | P.CNS ---
Date of Consult: 08/11/21 Reason for Consult: Coronavirus pneumonia Chief Complaint: Shortness of breath cough History of Present Illness: Patient is 86 years of age diabetes liver cirrhosis admitted with worsening dyspnea shortness of breath cough diagnosed with coronavirus not eating and drinking currently doing okay eating her breakfast Allergies No Known Allergies Allergy (Unverified 08/10/21 19:11) - Past Medical/Surgical History -: Liver cirrhosis -: Diabetes -: Back surgery - Social History Alcohol use: No CD- Drugs: No Place of Residence: Home Review of Systems is unable to be obtained Physical Examination Temp Pulse Resp BP Pulse Ox 97.5 F 74 18 124/68 93 08/11/21 08:00 08/11/21 08:00 08/11/21 08:00 08/11/21 08:00 08/11/21 08:00 General: Alert, Mild distress Respiratory: Clear to auscultation bilaterally, Diminished Cardiovascular: No edema, Regular rate/rhythm Laboratory Data (last 24 hrs) 08/10/21 11:53: PT 13.1 H, INR 1.14 08/10/21 11:53: WBC 6.20, Hgb 9.7 L, Hct 28.9 L, Plt Count 64 L D 08/10/21 11:53: Sodium 136, Potassium 3.8, BUN 27 H, Creatinine 0.59, Glucose 192 H, Magnesium 1.8, Total Bilirubin 1.0, AST 41 H, ALT 40, Alkaline Phosphatase 188 H - Problems (1) Pneumonia due to 2019 novel coronavirus Current Visit: Yes Status: Acute Plan: Patient is 86 years of age admitted with diffuse bilateral infiltrates she has pneumonia due to coronavirus complaining of cough add nebulized budesonide oxygenation satisfactory she is on 2 L 94% sat patient is white count has declined continue with IV levofloxacin DC Rocephin blood cultures are pending continue with steroid
[2021-08-11 14:45] LABS: White Blood Cell Scan OK (OK)
[2021-08-11 14:46] LABS: Blood Morphology Comment NOT SEEN (NOT SEEN); Platelet Estimate DECR
[2021-08-11] MEDS: AZATHIOPRINE 50 MG TABLET PO SCH (15:22)
[2021-08-11] MEDS ORDERED: BUDESONIDE, MICRONIZED 3 MG CAP PO SCH (15:22)
--- NOTE | 2021-08-11 15:34 | P.PN ---
Subjective Date of Service: 08/11/21 Chief Complaint: Shortness of breath cough Patient is doing better today. She is currently tolerating 2 L oxygen by nasal cannula. Not in distress. Physical Examination - Vital Signs Temperature: 98.0 F Blood Pressure: 113/56 Pulse: 76 Respirations: 18 Pulse Ox (%): 93 - Physical Exam General: In no apparent distress, Other (Awake and communicates meaningfully) HEENT: Mucous membr. moist/pink Neck: JVD not distended Respiratory: Crackles/rales Cardiovascular: No edema, Regular rate/rhythm, Normal S1 S2 Gastrointestinal: Soft and benign, Non-distended Musculoskeletal: No swelling Integumentary: No rashes, No erythema Neurological: Other (No focal motor deficit) Assessment And Plan - Current Problems (Diagnosis) (1) Pneumonia due to 2019 novel coronavirus Current Visit: Yes Status: Acute (2) Acute respiratory failure with hypoxia Current Visit: Yes Status: Acute (3) Diabetes mellitus type 2 in nonobese Current Visit: Yes Status: Acute (4) Liver cirrhosis Current Visit: Yes Status: Acute (5) UTI (urinary tract infection) Current Visit: Yes Status: Acute (6) Anemia Current Visit: Yes Status: Acute (7) Neutropenia Current Visit: Yes Status: Acute - Plan Continue IV steroid. Vitamin C and zinc supplementation. Monitor inflammatory markers. Pulmonary input appreciated. Wean oxygen as tolerated There was a concern for secondary bacterial infection given elevated procalcitonin. There is also some evidence of UTI. Continue IV Levaquin. Follow urine culture. Insulin sliding scale for glucose management. Hold Metformin. Anemia is likely chronic. Monitor CBC. Speech therapy for dysphagia screen. Patient with neutropenia. Monitor CBC to follow leukopenia. Resume other home medications.
[2021-08-12 03:45] LABS: Absolute Lymphocytes (CBC) 0.2 K/uL (0.7-4.9); Hematocrit 28.9 % (36.0-45.0); Lymphocytes % 3.7 % (15.3-44.8); MPV 9.3 fL (7.6-11.3); RBC Red Blood Cell Count 2.84 M/uL (3.86-4.86)
[2021-08-12 03:54] LABS: C-Reactive Protein 62.5 mg/L (<3.00); Ferritin 688.7 ng/mL (8-388)
[2021-08-12 05:16] LABS: Blood Morphology Comment NOT SEEN (NOT SEEN); Platelet Estimate DECR; White Blood Cell Scan OK (OK)
[2021-08-12] MEDS: ZINC SULFATE 220 MG CAP PO SCH (08:10)
[2021-08-12] MEDS: SOLIFENACIN SUCCIN 5 MG TAB PO SCH (08:10)
[2021-08-12] MEDS: MULTIVITAMIN TAB PO SCH (08:10)
[2021-08-12] MEDS: ASCORBIC ACID 500 MG TABLET PO SCH ×2 (08:10→21:00)
[2021-08-12] MEDS: ROSUVASTATIN 10 MG TAB PO SCH (08:10)
[2021-08-12] MEDS: FAMOTIDINE 20 MG/2 ML VIAL IV SCH ×2 (08:11→21:00)
[2021-08-12] MEDS: VITAMIN D 5,000 UNIT CAP PO SCH (08:11)
[2021-08-12] MEDS: METHYLPREDNISOLONE 40 MG INJ IV SCH ×2 (08:11→21:00)
[2021-08-12] MEDS: INSULIN -REGULAR HUMAN 50 UNIT/0.5 ML ML SQ SCH ×4 (08:11→21:00)
[2021-08-12] MEDS: AZATHIOPRINE 50 MG TABLET PO SCH (08:12)
[2021-08-12] MEDS: ENTOCORT 3 MG PO SCH (08:13)
[2021-08-12] MEDS ORDERED: TIMOLOL MALEATE 0.5% OPTH 5 ML BTL OPTH SCH (09:00)
[2021-08-12] MEDS: CALCIUM CARBONATE CHEW 500MG TAB PO SCH (12:06)
--- NOTE | 2021-08-12 18:35 | P.PN ---
Subjective Date of Service: 08/12/21 Chief Complaint: Shortness of breath cough Patient stated she feels much better today She is comfortable on 2 L oxygen by nasal cannula. She desaturated to 80% with exertion. Physical Examination - Vital Signs Temperature: 98.7 F Blood Pressure: 113/53 Pulse: 65 Respirations: 24 Pulse Ox (%): 95 - Physical Exam General: Alert, In no apparent distress, Oriented x3 HEENT: Mucous membr. moist/pink Neck: JVD not distended Respiratory: Crackles/rales Cardiovascular: No edema, Regular rate/rhythm, Normal S1 S2 Gastrointestinal: Soft and benign, Non-distended Musculoskeletal: No swelling Integumentary: No rashes Neurological: Normal strength at 5/5 x4 extr Assessment And Plan - Current Problems (Diagnosis) (1) Pneumonia due to 2019 novel coronavirus Current Visit: Yes Status: Acute (2) Acute respiratory failure with hypoxia Current Visit: Yes Status: Acute (3) Diabetes mellitus type 2 in nonobese Current Visit: Yes Status: Acute (4) Liver cirrhosis Current Visit: Yes Status: Acute (5) UTI (urinary tract infection) Current Visit: Yes Status: Acute (6) Anemia Current Visit: Yes Status: Acute (7) Neutropenia Current Visit: Yes Status: Acute - Plan Continue IV steroid. Vitamin C and zinc supplementation. Monitor inflammatory markers. Pulmonary input appreciated. Wean oxygen as tolerated There was a concern for secondary bacterial infection given elevated procalcitonin. There is also some evidence of UTI. Continue IV Levaquin. Insulin sliding scale for glucose management. Hold Metformin. Anemia is likely chronic. Monitor CBC. No dysphagia Leukopenia resolved. Continue other home medications.
[2021-08-12] MEDS ORDERED: Levofloxacin 750mg IV 750 MG/150 ML BAG IV SCH (21:00)
[2021-08-12] MEDS: GLUCERNA SHAKE 237 ML CAN PO SCH (21:00)
[2021-08-13 03:55] LABS: Absolute Lymphocytes (CBC) 0.1 K/uL (0.7-4.9); Hematocrit 30.3 % (36.0-45.0); MPV 9.6 fL (7.6-11.3); RBC Red Blood Cell Count 2.98 M/uL (3.86-4.86)
[2021-08-13 04:15] LABS: C-Reactive Protein 29.2 mg/L (<3.00); Ferritin 616.7 ng/mL (8-388)
[2021-08-13 04:24] VITALS: BP 157/74; TEMP 97.7
[2021-08-13] MEDS: INSULIN -REGULAR HUMAN 50 UNIT/0.5 ML ML SQ SCH ×2 (07:30→11:30)
[2021-08-13] MEDS: GLUCERNA SHAKE 237 ML CAN PO SCH (09:00)
[2021-08-13] MEDS: ENTOCORT 3 MG PO SCH (09:00)
[2021-08-13] MEDS ORDERED: TIMOLOL MALEATE 0.5% OPTH 5 ML BTL OPTH SCH (09:00)
[2021-08-13 09:08] VITALS: O2SAT 94
[2021-08-13] MEDS: CALCIUM CARBONATE CHEW 500MG TAB PO SCH (09:17)
[2021-08-13] MEDS: ROSUVASTATIN 10 MG TAB PO SCH (09:17)
[2021-08-13] MEDS: MULTIVITAMIN TAB PO SCH (09:17)
[2021-08-13] MEDS: METHYLPREDNISOLONE 40 MG INJ IV SCH (09:17)
[2021-08-13] MEDS: VITAMIN D 5,000 UNIT CAP PO SCH (09:18)
[2021-08-13] MEDS: SOLIFENACIN SUCCIN 5 MG TAB PO SCH (09:18)
[2021-08-13] MEDS: ASCORBIC ACID 500 MG TABLET PO SCH (09:18)
[2021-08-13] MEDS: AZATHIOPRINE 50 MG TABLET PO SCH (09:18)
[2021-08-13] MEDS: ZINC SULFATE 220 MG CAP PO SCH (09:20)
[2021-08-13] MEDS: FAMOTIDINE 20 MG/2 ML VIAL IV SCH (09:20)
--- NOTE | 2021-08-13 12:01 | P.PN ---
Subjective Date of Service: 08/13/21 Chief Complaint: Coronavirus pneumonia Subjective: Improving (Patient is improving still complaining of cough feeling weak) Review of Systems General: Weakness Respiratory: Shortness of Breath Physical Examination - Vital Signs Temperature: 97.7 F Blood Pressure: 157/74 Pulse: 66 Respirations: 20 Pulse Ox (%): 93 - Physical Exam General: Alert, Cooperative, Mild distress Respiratory: Clear to auscultation bilaterally, Diminished Cardiovascular: No edema, Normal S1 S2 Assessment And Plan - Current Problems (Diagnosis) (1) Pneumonia due to 2019 novel coronavirus Current Visit: Yes Status: Acute Plan: Patient is doing much better improving blood cultures are negative to p.o. levofloxacin plan for discharge and discharged home on levofloxacin and steroids follow-up with me in 2 weeks
--- NOTE | 2021-08-13 14:08 | P.DS ---
Admission Date: 08/10/21 Discharge Date: 08/13/21 Disposition: ROUTINE DISCHARGE Discharge Condition: FAIR Reason for Admission: Coronavirus pneumonia - Problems (1) Pneumonia due to 2019 novel coronavirus Status: Acute (2) Acute respiratory failure with hypoxia Status: Acute (3) Diabetes mellitus type 2 in nonobese Status: Acute (4) Liver cirrhosis Status: Acute (5) UTI (urinary tract infection) Status: Acute (6) Anemia Status: Acute (7) Neutropenia Status: Acute Brief History of Present Illness: 86-year-old woman with a history of diabetes and liver cirrhosis was brought to the emergency department due to progressive worsening shortness of breath and cough. Patient has had multiple ED visits for cough and shortness of breath since she was diagnosed with Covid 19 infection on July 16. Daughter report she now has poor oral intake. She denied fever or chest pain. Chest x-ray done in the emergency department demonstrate mild increase in bilateral infiltrate. Patient was hypoxic on room air on arrival and was requiring 4 L of oxygen to maintain SPO2 above 90%. Daughter was concerned that patient have had pneumonia for prolonged period of time. Daughter reports fever at home. Repeat COVID-19 test is pending. UA is positive for nitrite, procalcitonin elevated. Daughter denies any problem with swallowing. She has no leukocytosis. Patient is hospitalized for further management. Hospital Course: Patient admitted the medical floor and treated for COVID pneumonia with IV steroid, vitamin supplementation. Patient improved with treatment and oxygen weaned down to 2 L. Her oral intake improved, patient became more interactive. Seen by pulmonary who assisted with management of the Covid pneumonia. UA suggested UTI, blood cultures yielded no growth. Patient completed IV Levaquin for UTI treatment. Speech therapy saw patient and she had no dysphagia. Patient has clinically improved, her respiratory status has been stable. She ambulated several feet on 2 L of oxygen by nasal cannula during PT. She is discharged with a tapering dose of steroid. Vital Signs/Physical Exam: Temp Pulse Resp BP Pulse Ox 97.7 F 66 20 157/74 H 93 08/13/21 12:03 08/13/21 12:03 08/13/21 12:03 08/13/21 12:03 08/13/21 12:03 General: Alert, In no apparent distress, Oriented x3 HEENT: Mucous membr. moist/pink, Sclerae nonicteric Neck: Supple, JVD not distended Respiratory: Crackles/rales (Bilateral) Cardiovascular: No edema, Normal S1 S2, Irregular heart rate/rhythm Gastrointestinal: Soft and benign, Non-distended, No tenderness Musculoskeletal: No swelling Integumentary: No rashes, No cyanosis Neurological: Normal strength at 5/5 x4 extr Laboratory Data at Discharge: WBC 4.10 K/uL (4.3-10.9) L 08/13/21 03:25 Hgb 10.1 g/dL (12.0-15.0) L 08/13/21 03:25 Hct 30.3 % (36.0-45.0) L 08/13/21 03:25 Plt Count 62 K/uL (152-406) L 08/13/21 03:25 PT 13.1 SECONDS (9.5-12.5) H 08/10/21 11:53 INR 1.14 08/10/21 11:53 Sodium 139 mmol/L (136-145) 08/11/21 05:13 Potassium 4.1 mmol/L (3.5-5.1) 08/11/21 05:13 BUN 19 mg/dL (7-18) H 08/11/21 05:13 Creatinine 0.36 mg/dL (0.55-1.3) L 08/11/21 05:13 Glucose 185 mg/dL (74-106) H 08/11/21 05:13 Phosphorus 2.9 mg/dL (2.5-4.9) 08/11/21 05:13 Magnesium 2.1 mg/dL (1.8-2.4) 08/11/21 05:13 Total Bilirubin 0.7 mg/dL (0.2-1.0) 08/11/21 05:13 AST 26 U/L (15-37) 08/11/21 05:13 ALT 34 U/L (12-78) 08/11/21 05:13 Alkaline Phosphatase 174 U/L (45-117) H 08/11/21 05:13 Triglycerides 100 mg/dL (<150) 08/11/21 05:13 Cholesterol 89 mg/dL (<200) 08/11/21 05:13 HDL Cholesterol 45 mg/dL (40-60) 08/11/21 05:13 Cholesterol/HDL Ratio 1.98 08/11/21 05:13 Home Medications: Budesonide [Budesonide Dr] 3 mg PO DAILY 08/11/21 Calcium Carbonate [Calcium] 2,000 mg PO DAILY 08/11/21 Cholecalciferol (Vitamin D3) [Vitamin D 1000 Iu Tab*] 1,000 unit PO DAILY 08/11/21 Metformin HCl [Glucophage*] 500 mg PO BID 08/11/21 Multivitamin 1 each PO DAILY 08/11/21 Rosuvastatin Calcium 5 mg PO DAILY 08/11/21 Solifenacin [Vesicare*] 10 mg PO DAILY 08/11/21 Timolol Maleate/Pf [Timolol Maleate 0.5% Eye Drop] 1 each OP DAILY 08/11/21 azaTHIOprine [Azathioprine] 75 mg PO DAILY 08/11/21 Ascorbic Acid [Vitamin C*] 1,000 mg PO BID #120 tablet 08/13/21 Glucerna Shake [Glucerna*] 237 ml PO BID #60 can 08/13/21 Zinc Sulfate [Zinc Sulfate*] 220 mg PO DAILY #30 cap 08/13/21 predniSONE [Deltasone] 20 mg PO BID #15 tab 08/13/21 New Medications: Glucerna Shake [Glucerna*] 237 ml PO BID #60 can predniSONE [Deltasone] 20 mg PO BID #15 tab Ascorbic Acid [Vitamin C*] 1,000 mg PO BID #120 tablet Zinc Sulfate [Zinc Sulfate*] 220 mg PO DAILY #30 cap Diet: AHA Activity: Fall precautions Followup: NONE,NONE [Primary Care Provider] - 1-2 Weeks (Call to schedule an appointment.) Time spent managing pt's care (in minutes): 39
[2021-08-13] MEDS ORDERED: predniSONE 20 MG TAB PO SCH (21:00)
[2021-08-14] MEDS ORDERED: levoFLOXacin 750 MG TAB PO SCH (09:00)
== END 2021-08-13 12:50 | disposition home or self-care (01) | DRG 177 ==
LOC: ER 11:22 → ERHOLD 13:52 → 4TH 16:36
PROVIDERS: ADMIT Internal Medicine; ATTEND Internal Medicine
DX: U07.1 COVID-19 (principal); J12.82 Pneumonia due to coronavirus disease 2019; J96.01 Acute respiratory failure with hypoxia; N39.0 Urinary tract infection, site not specified; E11.9 Type 2 diabetes mellitus without complications; K74.60 Unspecified cirrhosis of liver; D64.9 Anemia, unspecified; D70.9 Neutropenia, unspecified
CPT/HCPCS: 0240U; 36415; 71045; 80048; 80053; 80061; 80076; 81003; 82728; 82947; 83605; 83735; 83880; 84100; 84145; 84484; 85025; 85379; 85610; 86140; 87040; 92610; 93005; 94760; 96365; 96375; 97116; 97161; 99284; J2920; J7500

== ENCOUNTER 2021-08-17 10:04 | Inpatient (IN) | payer MEDICARE ==
--- OUTSIDE RECORDS SUMMARY | 2021-08-17 10:06 | XMS REPORT | Continuity of Care Document ---
:1935 Author Organization [facility] t Address [address] [place] [address] [address] [place] [address] Care Team Providers Name Role Phone Pcp, Patient Does Not Have A Primary Care Physician +[id number] [employer] Attending Clinician Unknown Attending Clinician Unavailable Keyla Reza MD Attending Clinician Payers Payer Name Policy Type Policy Number Effective Date Expiration Date S [facility] [employer] [id number] (MEDICARE 00:00:00 REPLACEMENT HMO) Problems Condition Condition Condition Status Onset Resolution Last Treating Co mments Source Name Details Category Date Date Treatment Clinician Date No known No known Disease Unive rs active active ity of problems problems [facility] Allergies, Adverse Reactions, Alerts This patient has no known allergies or adverse reactions. Social History Social Habit Start Date Stop Date Quantity Comments Source Exposure to Not sure [facility] SARS-CoV-2 (event) Medica l Branch Sex Assigned At [address] 1935 [facility] 00:00:00 00:00:00 Medical Branch Smoking Status Start Date Stop Date Source Unknown if ever smoked [facility] Medications Ordered Filled Start Stop Current Ordering Indication Dosage Frequency Signature Comments Components Source Medication Medication Date Date Medication? Clinician (SIG) Name Name benzonatate Yes [id number] 100mg Take 1 [facility] 100 mg 2-01 capsule by ity of capsule 00:00: mouth [place] 00 every 8 Medical (eight) Branch hours as needed for Cough. Vital Signs Vital Name Observation Time Observation Value Comments Source Systolic blood 2021-07-30 16:03:00 125 mm[Hg] Univer sity of pressure [facility] Diastolic blood 2021-07-30 16:03:00 74 mm[Hg] Unive rsity of pressure [facility] Heart rate 2021-07-30 16:03:00 74 /min [facility] Body temperature 2021-07-30 16:03:00 37.17 [facility]ana [facility] Respiratory rate 2021-07-30 16:03:00 20 /min [facility] Body height 2021-07-30 16:03:00 149.9 cm [facility] Body weight 2021-07-30 16:03:00 48.988 kg [facility] BMI 2021-07-30 16:03:00 21.81 kg/m2 [facility] Oxygen saturation in 2021-07-30 16:03:00 95 /min [facility] blood by [facility] Pulse oximetry Branch Procedures Procedure Date / Time Performing Clinician Source Performed COVID-19 (MOLECULAR 2021-07-30 16:06:00 Edenilson Chi [facility] TESTING [facility] NUCLEIC ACID AMPLIFICATION) LAB ONLY COVID 2021-07-30 16:06:00 Edenilson [facility] [place] [facility] INTERPRETATION [facility] Encounters Start End Encounter Admission Attending Care Care Encounter Source Date/Time Date/Time Type Type Clinicians Facility Department ID 2021-08-16 2021-08-16 [id number]:00:00 09:00:00 [id number] Medica l Group 2021-08-15 2021-08-[address] [facility] [id number] [facility] 07:00:00 07:00:00 [id number] Medica l Group 2021-07-30 2021-07-30 Urgent [place], Nelly [facility] [id number] [facility] 10:00:00 10:05:16 Care Unknown, Attending HEALTH [id number] ity of Eren Reza [id number] [place] ANTHONY?BLEA [id number] [address] MEDICAL OFFICE BUILDING 2021-06-03 2021-06-03 Outpatient DMG [facility] [id number] [facility] 09:31:00 09:31:00 [id number] Medica l Group Results This patient has no known results.
[2021-08-17] MEDS ORDERED: LEVALBUTEROL 1.25 MG/3 ML NEB ONE (10:27)
[2021-08-17] MEDS ORDERED: ONDANSETRON 4 MG/2 ML VIAL ONE ×2 (10:28→16:53)
[2021-08-17] MEDS ORDERED: NA CHLORIDE 0.9% 1,000 ML ONE (10:28)
[2021-08-17 10:35] LABS: Absolute Lymphocytes (CBC) 0.2 K/uL (0.7-4.9); Hematocrit 29.1 % (36.0-45.0); Lymphocytes % 7.2 % (15.3-44.8); MPV 8.5 fL (7.6-11.3); RBC Red Blood Cell Count 2.84 M/uL (3.86-4.86)
[2021-08-17 10:42] LABS: Protime INR 1.18
[2021-08-17 10:53] LABS: ALT/SGPT 47 U/L (12-78); AST/SGOT 25 U/L (15-37); Alkaline Phosphatase 193 U/L (45-117); BUN Blood Urea Nitrogen 23 mg/dL (7-18); Bicarbonate 23 mmol/L (21-32); Bilirubin Direct 0.7 mg/dL (0-0.2); Bilirubin Total 1.6 mg/dL (0.2-1.0); Glucose Level 243 mg/dL (74-106); Lipase 64 U/L (73-393); NT PRO-BNP 519 pg/mL (<450); Potassium 3.8 mmol/L (3.5-5.1); Protein, Total 5.5 g/dL (6.4-8.2); Sodium Level 137 mmol/L (136-145)
--- NOTE | 2021-08-17 10:57 | RAD REPORT ---
EXAM DESCRIPTION: RAD - Chest Single View - 08/17/2021 10:31 am CLINICAL HISTORY: DYSPNEA COMPARISON: Portable December 08, portable 08/06/2021 TECHNIQUE: AP portable chest image was obtained 08/17/2021 10:31 am . FINDINGS: Worsening of airspace opacification noted in the lateral mid left lung field. Left base ai rspace disease is similar or slightly worse. Right lung field is probably not significantly different . The lower lung volumes on today's study accentuate the lung parenchymal pattern. Left-sided progres giorgi is believed to be true change. Heart and vasculature are normal. No measurable pleural effusion and no pneumothorax. No acute bony abnormality seen. No acute aortic findings suspected. IMPRESSION: Worsening left-sided pneumonia compared to 08/06/2021 imaging.
--- NOTE | 2021-08-17 11:46 | RAD REPORT ---
EXAM DESCRIPTION: CT - Abdomen Pelvis W Contrast - 08/17/2021 11:14 am CLINICAL HISTORY: Abd pain;Nausea / vomiting COMPARISON: Chest Single View dated 08/17/2021; Chest Single View dated 08/10/2021 TECHNIQUE: Biphasic, helical CT imaging of the abdomen and pelvis was performed following 100 ml non -ionic IV contrast. No oral contrast was administered. All CT scans are performed using dose optimization technique as appropriate and may include automated exposure control or mA/KV adjustment according to patient size. FINDINGS: Patient has extensive interstitial thickening throughout both lower lung antoine worse on t he left. There is some associated airspace opacification as well. Separately reported chest film show progressive disease in the midportion of the left lung field. No pneumothorax or pleural effusion. N o pericardial effusion. Slight nodularity to the liver capsule is present with no focal liver parenchymal lesions. Portal vei n is fully opacified. Gallbladder is normal size. No biliary tree dilatation. Gallstones can be occul t on CT imaging. No solid mass of the pancreas identified. There is a 16 millimeter cyst in the body of the pancreas. No wall thickening or septation. No peripancreatic inflammatory stranding. There are several small areas of subcapsular absent or diminished enhancement of the splenic parenchyma. These may be areas of prior splenic infarction. Symmetric renal function is seen with no hydronephrosis or suspicious renal mass. No pyelonephritis o r acute parenchymal process. No bladder abnormalities. No adrenal abnormalities. Uterus is absent or very atrophic. Ovaries are atrophic or absent. No adnexal mass lesion. No gastric dilatation. No gross evidence for a gastric wall mass. Small bowel loops are not dilated. No acute appendicitis findings are seen. There is a large amount of stool dilating the rectum to 7 cm . : Is otherwise mostly decompressed. Absence of lumen content limits evaluation of the remainder of the colon. Mild edema or thickening of the colon wall cannot be excluded. No free air or pneumatosis present. Trace amount of free intraperitoneal fluid is present. No nan ia, mass or bulky lymphadenopathy. No omental thickening. Prominent disc and bony degenerative changes are present. Postsurgical changes are present from L4-5 fusion. No acute or pathologic bone process seen. Dense aortoiliac calcifications are present. No aneurysm. IMPRESSION: No bowel obstruction, free air or surgically emergent finding identifiable. Large rectal stool volume dilating the rectum to 7 cm. Mild edema or wall thickening of the decompres sed colon in the cecum- sigmoid colon region cannot be excluded. Very extensive interstitial lung disease in each base, left greater than right. Separately reported CT chest study show progressive lung parenchymal disease suspicious for pneumonia. Suspected small splenic infarctions. Liver shows nodular capsule contour which could indicate cirrhos is or diffuse hepatic parenchymal disease. No focal lesion. Trace amount of ascites.
[2021-08-17 11:58] LABS: SARS-COV-2 RT PCR POSITIVE (NEGATIVE)
[2021-08-17 12:01] LABS: Anisocytosis 1+; Blood Morphology Comment NOTED (NOT SEEN); Platelet Estimate DECR; White Blood Cell Scan OK (OK)
[2021-08-17] MEDS ORDERED: NA CHLORIDE 0.9% 50 ML ONE (12:28)
[2021-08-17] MEDS ORDERED: AZITHROMYCIN 500 MG INJ IVPB ONE (12:28)
[2021-08-17] MEDS ORDERED: NA CHLORIDE 0.9% 250 ML ONE (12:28)
[2021-08-17] MEDS ORDERED: METHYLPREDNISOLONE 125 MG INJ ONE (12:28)
[2021-08-17] MEDS ORDERED: CEFTRIAXONE 1000 MG/VIAL ONE (12:28)
--- NOTE | 2021-08-17 12:30 | EDPHYS ---
Physician Documentation [facility] Name: Edwin Balderas Age: 86 yrs Sex: Female : 1935 Arrival Date: 08/17/2021 Time: 10:05 Bed 19 Private MD: ED Physician Itz Lynn HPI: 08/17 12:12 This 86 yrs old Female presents to ER via EMS with complaints of Nausea/Vomiting, rn Productive Cough. 12:12 The patient has shortness of breath at rest, with light activity. Onset: The rn symptoms/episode began/occurred 1 week(s) ago. Duration: The symptoms are continuous. The patient's shortness of breath is aggravated by exertion, light activity, talking, is alleviated by rest. The patient has experienced similar episodes in the past. The patient has been recently seen by a physician: The patient has been recently been admitted at [facility]. . 12:12 Associated signs and symptoms: Pertinent positives: productive cough, nausea, vomiting, rn Pertinent negatives: hemoptysis. Severity of symptoms: At their worst the symptoms were moderate in the emergency department the symptoms are unchanged. Pt recently admitted for COVID pneumonia, returns for increased sob/weakness/vomiting, and not able to eat. EMS report 85% O2 on her home oxygen. Denies chest pain. . Historical: - Allergies: 10:14 Codeine; bp - PMHx: 10:14 diabetes mellitus; Hypertensive disorder; Liver cirrhosis; bp - Immunization history:: Adult Immunizations up to date. - Social history:: Smoking status: Patient denies any tobacco usage or history of. - Family history:: not pertinent. - Hospitalizations: : The patient was recently seen at [facility]. ROS: 12:12 Constitutional: + chills Eyes: Negative for injury, pain, redness, and discharge, Neck: rn Negative for injury, pain, and swelling, Cardiovascular: Negative for chest pain, palpitations, and edema, Respiratory: + cough and sob Abdomen/GI: + nausea/vomiting/abd pain MS/Extremity: Negative for injury and deformity, Skin: Negative for injury, rash, and discoloration, Neuro: Negative for headache, numbness, tingling, and seizure. Exam: 10:40 ECG was reviewed by the Attending Physician. rn 12:12 Constitutional: This is a well developed, well nourished patient who is awake, alert, rn appears ill and weak, not wanting to speak with me, mumbles with incomprehensible speech. Head/Face: Normocephalic, atraumatic. Eyes: Periorbital areas with no swelling, redness, or edema. ENT: dry MM Cardiovascular: Regular rate and rhythm. No pulse deficits. Respiratory: + tachypnea, no retractions, diminished breath sounds at bases Abdomen/GI: Soft, mild epigastric tenderness, no rebound Skin: Warm, dry MS/ Extremity: Pulses equal, no cyanosis. Neuro: Awake, somnolent, moves all 4 extremities. Vital Signs: 10:05 BP 182 / 76; Pulse 82; Resp 20; Temp 98.7; Pulse Ox 94% on 4 lpm NC; bp 10:06 BP 163 / 73 LA; Pulse 82; Resp 24; Temp 97.9; Pulse Ox 89% ; Weight 48 kg; Height 4 ft. mb7 11 in. (149.86 cm); 12:10 BP 163 / 74; Pulse 85; Resp 24; Pulse Ox 92% ; jl7 13:36 BP 133 / 63; Pulse 86; Resp 16; Pulse Ox 100% ; bp 14:30 BP 140 / 63; Pulse 86; Resp 17; Pulse Ox 97% ; bp 15:30 BP 128 / 63; Pulse 85; Resp 17; Pulse Ox 98% ; bp 16:30 BP 123 / 57; Pulse 85; Resp 16; Pulse Ox 97% ; bp 17:30 BP 154 / 61; Pulse 77; Resp 17; Pulse Ox 98% ; bp 18:30 BP 145 / 66; Pulse 84; Resp 18; Pulse Ox 97% ; bp 10:06 Body Mass Index 21.37 (48.00 kg, 149.86 cm) mb7 MDM: 10:05 Patient medically screened. rn 12:12 Differential diagnosis: Bronchitis Chronic Obstructive Pulmonary Disease pneumonia, rn Pneumothorax pulmonary edema, reactive airway disease, Sepsis. Data reviewed: vital signs, nurses notes, lab test result(s), EKG, radiologic studies, CT scan, plain films, and as a result, I will admit patient. Counseling: I had a detailed discussion with the patient and/or guardian regarding: the historical points, exam findings, and any diagnostic results supporting the discharge/admit diagnosis, lab results, radiology results, the need for further work-up and treatment in the hospital. Admission orders: after a detailed discussion of the patient's condition and case, the admit orders are written by me. ED course: Admitted to Dr. Bishop for worsening pneumonia, dehydration, not tolerating PO, and increased oxygen requirement.. 08/17 10:09 Order name: BMP rn 08/17 10:09 Order name: Blood Culture Adult (2) rn 08/17 10:09 Order name: CBC with Diff rn 08/17 10:09 Order name: Hepatic Function rn 08/17 10:09 Order name: Lipase; Complete Time: 11:48 rn 08/17 10:09 Order name: NT PRO-BNP; Complete Time: 11:48 rn 08/17 10:09 Order name: PT-INR; Complete Time: 11:48 rn 08/17 10:09 Order name: Ptt, Activated; Complete Time: 11:48 rn 08/17 10:10 Order name: Basic Metabolic Panel; Complete Time: 11:48 EDNM 08/17 10:10 Order name: Blood Culture EDNM 08/17 10:10 Order name: CBC with Automated Diff; Complete Time: 12:10 EDNM 08/17 10:10 Order name: Liver (Hepatic) Function; Complete Time: 11:48 EDNM 08/17 10:11 Order name: COVID-19/FLU A+B (Document "Date of Onset" if Symptomatic) rn 08/17 10:12 Order name: COVID-19/FLU A+B; Complete Time: 12:10 EDNM 08/17 10:09 Order name: XRAY CXR (1 view); Complete Time: 11:48 rn 08/17 10:09 Order name: CT Abd/Pelvis - IV Contrast Only; Complete Time: 11:48 rn 08/17 12:01 Order name: CBC Smear Scan; Complete Time: 12:10 EDNM 08/17 14:48 Order name: Comprehensive Metabolic Panel EDNM 08/17 14:48 Order name: Comprehensive Metabolic Panel EDNM 08/17 14:48 Order name: Magnesium EDNM 08/17 14:48 Order name: Magnesium EDNM 08/17 14:48 Order name: Magnesium EDNM 08/17 14:48 Order name: Magnesium EDNM 08/17 14:48 Order name: CBC with Automated Diff EDNM 08/17 14:48 Order name: CBC with Automated Diff EDNM 08/17 10:09 Order name: EKG; Complete Time: 10: rn 08/17 10:09 Order name: Cardiac monitoring; Complete Time: 10: rn 08/17 10:09 Order name: EKG - Nurse/Tech; Complete Time: 10:46 rn 08/17 10:09 Order name: IV Saline Lock; Complete Time: 10: rn 08/17 10:09 Order name: Labs collected and sent; Complete Time: : rn 08/17 10:09 Order name: O2 Per Protocol; Complete Time: : rn 08/17 10:09 Order name: O2 Sat Monitoring; Complete Time: : rn 08/17 14:48 Order name: CONS Physician Consult EDNM 08/17 14:48 Order name: Occupational Therapy Consult [facility] 08/17 14:48 Order name: Physical Therapy Consult [facility] 08/17 14:48 Order name: Full Liquid EDNM EC:40 Rate is 80 beats/min. Rhythm is regular. QRS Rhodhiss is Normal. MT interval is normal. QRS rn interval is normal. QT interval is normal. No Q waves. T waves are Normal. No ST changes noted. Clinical impression: Normal ECG. Reviewed by me. Administered Medications: 10:30 Drug: NS 0.9% 1000 ml Route: IV; Rate: 1000 ml; Site: left antecubital; bp 10:30 Drug: Zofran (Ondansetron) 4 mg Route: IVP; Site: left antecubital; bp 10:45 Drug: Xopenex (levalbuterol) 1.25 mg Route: Inhalation; bp 12:20 Drug: Rocephin (cefTRIAXone) 1 grams Route: IV; Rate: calculated rate; Site: left bp antecubital; 16:44 Follow up: IV Status: Completed infusion; IV Intake: 50ml bp 12:20 Drug: Zithromax (azithromycin) 500 mg Route: IVPB; Infused Over: 1 hrs; Site: left bp antecubital; 16:44 Follow up: IV Status: Completed infusion; IV Intake: 250ml bp 12:20 Drug: SOLU-Medrol (methylPrednisoLONE) 125 mg Route: IVP; Site: left antecubital; bp 16:44 Follow up: Response: No adverse reaction bp Disposition Summary: 08/17/21 12:30 Hospitalization Ordered Hospitalization Status: Inpatient Admission rn Provider: Rah Bishop rn Condition: Stable rn Problem: an ongoing problem rn Symptoms: have improved rn Bed/Room Type: Standard rn Location: Telemetry/MedSurg (Inpatient)(08/17/21 19:58) cg Room Assignment: 431(08/17/21 19:58) cg Diagnosis - Pneumonia due to SARS-associated coronavirus - Worsening rn - Hypoxemia rn - COPD/ Chronic obstructive pulmonary disease with (acute) exacerbation rn - Dehydration rn Forms: - Medication Reconciliation Form rn - SBAR form rn Signatures: Dispatcher [employer] EDMS Itz Lynn MD MD rn Garcia, Cindy, RN RN cg Peltier, Brian RN Akilah Truong Corrections: (The following items were deleted from the chart) 12:16 12:12 Hospitalizations: No recent hospitalization is reported. rn rn 12:16 12:12 The patient's shortness of breath is aggravated by exertion, light activity, is rn alleviated by rest, rn 12:16 12:12 Associated signs and symptoms: Pertinent negatives: fever, hemoptysis, rn rn 12:16 12:12 Severity of symptoms: At their worst the symptoms were moderate in the emergency rn department the symptoms are unchanged rn 12:16 12:12 The patient has experienced similar episodes in the past, rn rn 12:16 12:12 The patient has been recently seen by a physician: rn rn 12:16 12:12 Sent by dialysis staff for anemia, hemoglobin was 7, has had blood transfusions rn in past, reports increased dyspnea with exertion, generalized weakness, and fatigue. Told to come for blood transfusion. Last transfusion 6 months ago. Denies blood in stool. NO active bleeding.. rn 13:39 12:30 Telemetry/MedSurg (Inpatient) rn eb 13:39 12:30 rn eb :58 13:39 [facility] ER HOLD eb cg :58 13:39 ERHOLD- eb cg
--- NOTE | 2021-08-17 12:30 | ER ---
Nurse's Notes [facility] Name: Edwin Balderas Age: 86 yrs Sex: Female : 1935 Arrival Date: 08/17/2021 Time: 10:05 Bed 19 Private MD: Diagnosis: Pneumonia due to SARS-associated coronavirus-Worsening;Hypoxemia;COPD/ Chronic obstructive pulmonary disease with (acute) exacerbation;Dehydration Presentation: 08/17 10:05 Chief complaint: EMS states: NAUSEA, VOMITING AND PRODUCTIVE COUGH. Coronavirus screen: bp cough unrelated to allergies, nausea, shortness of breath, vomiting. Client presents with at least one sign or symptom that may indicate coronavirus-19. Standard/surgical mask placed on the client. Ebola Screen: No symptoms or risks identified at this time. Initial Sepsis Screen: Does the patient meet any 2 criteria? No. Patient's initial sepsis screen is negative. Does the patient have a suspected source of infection? No. Patient's initial sepsis screen is negative. Risk Assessment: Do you want to hurt yourself or someone else? Patient reports no desire to harm self or others. Onset of symptoms is unknown. Care prior to arrival: IV initiated. 22 GA, in the left antecubital area, DX WITH COVID PNEUMONIA LAST HOSPITALIZATION. 10:05 Method Of Arrival: EMS: [facility] bp 10:05 Acuity: SHERRY 3 bp Triage Assessment: 10:14 General: Appears distressed, uncomfortable, ill, Behavior is cooperative, drowsy. Pain: bp Denies pain. EENT: No deficits noted. Neuro: Level of Consciousness is awake, confused. Cardiovascular: No deficits noted. Respiratory: No deficits noted. GI: Reports nausea, vomiting. : No signs and/or symptoms were reported regarding the genitourinary system. Derm: No deficits noted. No signs and/or symptoms reported regarding the dermatologic system. Musculoskeletal: Reports weakness in GENERALIZED. Historical: - Allergies: 10:14 Codeine; bp - PMHx: 10:14 diabetes mellitus; Hypertensive disorder; Liver cirrhosis; bp - Immunization history:: Adult Immunizations up to date. - Social history:: Smoking status: Patient denies any tobacco usage or history of. - Family history:: not pertinent. - Hospitalizations: : The patient was recently seen at [facility]. Screenin:18 Abuse screen: Denies threats or abuse. Denies injuries from another. Nutritional bp screening: No deficits noted. Tuberculosis screening: No symptoms or risk factors identified. Fall Risk None identified. Assessment: 10:18 General: SEE TRIAGE NOTE. bp 12:00 Reassessment: No changes from previously documented assessment. Patient and/or family bp updated on plan of care and expected duration. Pain level reassessed. 13:37 Reassessment: ADMIT IN PROCESS. bp 15:30 Reassessment: No changes from previously documented assessment. Patient and/or family bp updated on plan of care and expected duration. Pain level reassessed. ADMIT IN PROCESS. 17:30 Reassessment: No changes from previously documented assessment. Patient and/or family bp updated on plan of care and expected duration. Pain level reassessed. PT ON ER HOLD. Vital Signs: 10:05 BP 182 / 76; Pulse 82; Resp 20; Temp 98.7; Pulse Ox 94% on 4 lpm NC; bp 10:06 BP 163 / 73 LA; Pulse 82; Resp 24; Temp 97.9; Pulse Ox 89% ; Weight 48 kg; Height 4 ft. mb7 11 in. (149.86 cm); 12:10 BP 163 / 74; Pulse 85; Resp 24; Pulse Ox 92% ; jl7 13:36 BP 133 / 63; Pulse 86; Resp 16; Pulse Ox 100% ; bp 14:30 BP 140 / 63; Pulse 86; Resp 17; Pulse Ox 97% ; bp 15:30 BP 128 / 63; Pulse 85; Resp 17; Pulse Ox 98% ; bp 16:30 BP 123 / 57; Pulse 85; Resp 16; Pulse Ox 97% ; bp 17:30 BP 154 / 61; Pulse 77; Resp 17; Pulse Ox 98% ; bp 18:30 BP 145 / 66; Pulse 84; Resp 18; Pulse Ox 97% ; bp 10:06 Body Mass Index 21.37 (48.00 kg, 149.86 cm) mb7 ED Course: 10:05 Patient arrived in ED. bp 10:05 Itz Lynn MD is Attending Physician. rn 10:14 Triage completed. bp 10:14 Arm band placed on. bp 10:18 Patient has correct armband on for positive identification. Bed in low position. Call bp light in reach. Side rails up X2. 10:18 Maintain EMS IV. Dressing intact. Good blood return noted. Site clean \T\ dry. Gauge \T\ bp site: 22 GAUGE LEFT AC. 10:31 Rayshawn Gonzalez, RN is Primary Nurse. bp 10:31 XRAY CXR (1 view) In Process Unspecified. EDMS 10:45 EKG done, by ED staff, reviewed by Itz Lynn MD. jw7 11:13 CT Abd/Pelvis - IV Contrast Only In Process Unspecified. EDMS 12:29 Rah Bishop MD is Hospitalizing Provider. rn 20:42 No provider procedures requiring assistance completed. Patient admitted, IV remains in sm5 place. Administered Medications: 10:30 Drug: NS 0.9% 1000 ml Route: IV; Rate: 1000 ml; Site: left antecubital; bp 10:30 Drug: Zofran (Ondansetron) 4 mg Route: IVP; Site: left antecubital; bp 10:45 Drug: Xopenex (levalbuterol) 1.25 mg Route: Inhalation; bp 12:20 Drug: Rocephin (cefTRIAXone) 1 grams Route: IV; Rate: calculated rate; Site: left bp antecubital; 16:44 Follow up: IV Status: Completed infusion; IV Intake: 50ml bp 12:20 Drug: Zithromax (azithromycin) 500 mg Route: IVPB; Infused Over: 1 hrs; Site: left bp antecubital; 16:44 Follow up: IV Status: Completed infusion; IV Intake: 250ml bp 12:20 Drug: SOLU-Medrol (methylPrednisoLONE) 125 mg Route: IVP; Site: left antecubital; bp 16:44 Follow up: Response: No adverse reaction bp Intake: 16:44 IV: 50ml; Total: 50ml. bp 16:44 IV: 250ml; Total: 300ml. bp Outcome: 12:30 Decision to Hospitalize by Provider. rn 20:42 Admitted to Med/surg accompanied by tech, via stretcher, with oxygen, with chart. [facility] 20:42 Condition: stable 20:42 Instructed on the need for admit. 20:43 Patient left the ED. 5 Signatures: Dispatcher [employer] EDMS Itz Lynn MD MD rn Leal, Jahala, RN RN jl7 Rayshawn Gonzalez RN RN bp Kavita Paulino mb7 Myranda Barlow RN RN sm5 Demetria River jw7 Corrections: (The following items were deleted from the chart) 12:16 12:12 Hospitalizations: No recent hospitalization is reported. lindy israel
--- NOTE | 2021-08-17 13:37 | P.HP ---
Certification for Inpatient With expected LOS: >2 Midnights Patient will require the following post-hospital care: None Practitioner: I am a practitioner with admitting privileges, knowledge of patient current condition, hospital course, and medical plan of care. Services: Services provided to patient in accordance with Admission requirements found in Title 42 Section 412.3 of the Code of Federal Regulations Patient History Date of Service: 08/17/21 Reason for admission: Weakness, cough History of Present Illness: 86-year-old female with history of liver cirrhosis, hypertension, recent Covid pneumonia, on home O2 admitted with nausea and vomiting this morning. Patient was recently admitted for COVID discharged home on 2 L nasal cannula O2 4 days ago. Patient has been having constipation since the last 5 days. She was started on budesonide inhaler in combination with albuterol yesterday. Daughter states after she has giving patient her first dose patient started feeling nauseous and had one episode of vomiting today. She was brought in because of nausea and vomiting. On arrival in the ED patient was noted with O2 sat of 85% on the 2 L oxygen was increased to 5 L now with improvement in O2 sat. Daughter states patient has been for family weak,lethargic and sleepy on arrival patient is drowsy now but arousable. She is complaining of generalized abdominal pain. Chest x-ray shows bilateral infiltrates more prominent on the left, CT of the chest shows worsening of the previous left opacities, still persistent right- sided opacity compared to previous imaging [address] also showed stool dilation of the distal rectum but no obstruction. Her Covid screen is still positive. She has been admitted for persistent COVID Allergies No Known Allergies Allergy (Unverified 08/10/21 19:11) Home Medications: Budesonide [Budesonide Dr] 3 mg PO DAILY 08/11/21 Calcium Carbonate [Calcium] 2,000 mg PO DAILY 08/11/21 Cholecalciferol (Vitamin D3) [Vitamin D 1000 Iu Tab*] 1,000 unit PO DAILY 08/11/21 Metformin HCl [Glucophage*] 500 mg PO BID 08/11/21 Multivitamin 1 each PO DAILY 08/11/21 Rosuvastatin Calcium 5 mg PO DAILY 08/11/21 Solifenacin [Vesicare*] 10 mg PO DAILY 08/11/21 Timolol Maleate/Pf [Timolol Maleate 0.5% Eye Drop] 1 each OP DAILY 08/11/21 azaTHIOprine [Azathioprine] 75 mg PO DAILY 08/11/21 Ascorbic Acid [Vitamin C*] 1,000 mg PO BID #120 tablet 08/13/21 Glucerna Shake [Glucerna*] 237 ml PO BID #60 can 08/13/21 Zinc Sulfate [Zinc Sulfate*] 220 mg PO DAILY #30 cap 08/13/21 predniSONE [Deltasone] 20 mg PO BID #15 tab 08/13/21 - Past Medical/Surgical History -: Liver cirrhosis -: Diabetes -: Back surgery - Social History Smoking Status: Never smoker Smoking therapy provided: No Patient receptive to therapy: No Alcohol use: No CD- Drugs: No Caffeine use: No Place of Residence: Home Review of Systems 10-point ROS is otherwise unremarkable Physical Examination - Physical Exam General: Alert, In no apparent distress, Other (drowsy) HEENT: Atraumatic, Normocephalic, PERRLA Neck: 2+ carotid pulse no bruit, JVD not distended Respiratory: Diminished, Dull Cardiovascular: Normal pulses, Regular rate/rhythm, Normal S1 S2 Gastrointestinal: Normal bowel sounds, Soft and benign, Non-distended, Tenderness Musculoskeletal: No clubbing, No swelling Integumentary: No rashes, No breakdown Neurological: Normal gait, Normal speech - Studies Laboratory Data (last 24 hrs) 08/17/21 10:24: PT 13.6 H, INR 1.18, APTT 23.4 L 08/17/21 10:24: WBC 3.40 L D, Hgb 9.7 L, Hct 29.1 L, Plt Count 62 L 08/17/21 10:24: Sodium 137, Potassium 3.8, BUN 23 H, Creatinine 0.36 L, Glucose 243 H, Total Bilirubin 1.6 H, AST 25, ALT 47, Alkaline Phosphatase 193 H, Lipase 64 L Assessment and Plan - Advance Directives Does patient have a Living Will: No Does patient have a Durable POA for Healthcare: No Physician Review: Patient Assessed, Agree with Above Assessment and Plan Physician Review Additional Text: Impression Persistent worsening COVID pneumonia Acute on chronic respiratory failuredue to pneumonia Rule out aspiration pneumonia Abdominal painpossible Stercolitis Hypertension Diabetes mellitus History of liver cirrhosis Chronic thrombocytopenia Constipation with rectal dilatation Asthenia Plan We will admit patient to inpatient status We will place in droplet isolation - start patient on Decadron 10 mg twice daily since persistent COVID pneumonia, will start empirical antibiotics with Rocephin Will obtain speech and swallow evaluation to rule out aspiration pneumonia Wean O2 as tolerated We will place, pulmonary consult since persistent COVID infiltrates We do cough regimen as tolerated Accu-Cheks with strict glycemic control. Insulin sliding scale as tolerated We will start patient on laxative for constipation and rectal dilatation with stool noted on chest x-ray We will hold off heparin for DVT prophylaxis since low platelet, do SCDs Continue PPI,For GI prophylaxis Advance directivediscussed with patient daughterreport full code Since marked weakness, will consult PT and OT
[2021-08-17] MEDS ORDERED: MORPHINE 2 MG/ML SYR IV PRN (14:41)
[2021-08-17] MEDS ORDERED: ACETAMINOPHEN 500 MG TAB PO PRN (14:41)
[2021-08-17] MEDS ORDERED: ALBUTEROL 2.5 MG/3 ML NEB SOL NEB PRN (14:41)
[2021-08-17] MEDS ORDERED: guaiFENesin 100 MG/5 ML UCUP PO PRN (14:45)
[2021-08-17] MEDS: CEFTRIAXONE 1,000 MG in NA CHLORIDE 0.9% 50 ML IVPB SCH (14:45)
[2021-08-17] MEDS ORDERED: LORAZEPAM 0.5 MG TABLET PO PRN (14:45)
[2021-08-17] MEDS ORDERED: HYDRALAZINE HCL 20 MG/ML VIAL IV PRN (14:45)
[2021-08-17] MEDS: INSULIN -REGULAR HUMAN 50 UNIT/0.5 ML ML SQ SCH ×2 (16:30→21:00)
[2021-08-17] MEDS: ONDANSETRON 4 MG/2 ML VIAL IV PRN (16:45)
[2021-08-17 18:21] VITALS: BMI 21.2
[2021-08-17] MEDS: dexAMETHasone 4 MG TAB PO SCH (21:38)
[2021-08-17] MEDS: METFORMIN HCL 500 MG TAB PO SCH (21:39)
[2021-08-18 04:15] LABS: Absolute Lymphocytes (CBC) 0.1 K/uL (0.7-4.9); Hematocrit 27.6 % (36.0-45.0); MPV 9.7 fL (7.6-11.3)
[2021-08-18 04:23] LABS: ALT/SGPT 39 U/L (12-78); AST/SGOT 25 U/L (15-37); Albumin 2.1 g/dL (3.4-5.0); Alkaline Phosphatase 187 U/L (45-117); BUN Blood Urea Nitrogen 21 mg/dL (7-18); Bicarbonate 24 mmol/L (21-32); Bilirubin Total 0.9 mg/dL (0.2-1.0); Glucose Level 185 mg/dL (74-106); Potassium 3.9 mmol/L (3.5-5.1); Protein, Total 5.6 g/dL (6.4-8.2); Sodium Level 140 mmol/L (136-145)
[2021-08-18] MEDS: INSULIN -REGULAR HUMAN 50 UNIT/0.5 ML ML SQ SCH ×5 (07:30→21:00)
[2021-08-18] MEDS ORDERED: POTASSIUM CL SA 10 MEQ TAB PO ONE (09:00)
[2021-08-18] MEDS: ASPIRIN EC 81 MG TAB PO SCH (09:20)
[2021-08-18] MEDS: POLYETHYL GLY 3350 17 GM/DOSE PO SCH (09:20)
[2021-08-18] MEDS: CEFTRIAXONE 1,000 MG in NA CHLORIDE 0.9% 50 ML IVPB SCH (09:20)
[2021-08-18] MEDS: ROSUVASTATIN 10 MG TAB PO SCH (09:20)
[2021-08-18] MEDS: ZINC SULFATE 220 MG CAP PO SCH (09:20)
[2021-08-18] MEDS: METFORMIN HCL 500 MG TAB PO SCH ×2 (09:20→21:17)
[2021-08-18] MEDS: dexAMETHasone 4 MG TAB PO SCH ×2 (10:17→21:17)
--- NOTE | 2021-08-18 11:50 | P.PN ---
Subjective Date of Service: 08/18/21 Chief Complaint: Weakness, cough Subjective: No new changes (Very drowsy, able to states she still having abdominal pain) Physical Examination - Vital Signs Temperature: 98 F Blood Pressure: 136/60 Pulse: 86 Respirations: 22 Pulse Ox (%): 91 - Physical Exam General: Other (frail, elderly female, slow speech flow) HEENT: Atraumatic, Normocephalic, PERRLA Neck: 2+ carotid pulse no bruit, JVD not distended Respiratory: Normal air movement, Diminished Cardiovascular: Regular rate/rhythm, Normal S1 S2 Gastrointestinal: Normal bowel sounds, Soft and benign, Non-distended, No ascites Musculoskeletal: No clubbing, No swelling Neurological: Normal strength at 5/5 x4 extr, Normal tone - Studies Laboratory Data (last 24 hrs) 08/17/21 10:24: WBC 3.40 L D, Hgb 9.7 L, Hct 29.1 L, Plt Count 62 L Assessment And Plan Physician Review: Patient Assessed, Agree with Above Assessment and Plan Physician Review Additional Text: Impression Persistent worsening COVID pneumonia Acute on chronic respiratory failuredue to pneumonia Rule out aspiration pneumonia Abdominal painpossible Stercolitis Hypertension Diabetes mellitus History of liver cirrhosis Chronic pancytopenia Constipation with rectal dilatation Asthenia Plan Continue steroids and zinc sulfate Continue empirical started Rocephin for possible superimposed aspiration pneumonia Follow formal speech and swallow evaluation Wean down O2 now Continue as needed pain medicine for abdominal pain Follow pulmonary consult since persistent COVID infiltrates continue cough regimen as tolerated Accu-Cheks with strict glycemic control. Insulin sliding scale as tolerated Continue laxative for constipation and rectal dilatation with stool noted on chest x-ray Continue hold off heparin for DVT prophylaxis since low platelet, do SCDs Continue PPI,For GI prophylaxis Advance directivediscussed with patient daughterreport full code Since marked weakness, will consult PT and OT 08/18/21 11:47
--- NOTE | 2021-08-18 18:16 | RAD REPORT ---
EXAM DESCRIPTION: CT - Head Brain Wo Cont - 08/18/2021 5:53 pm CLINICAL HISTORY: Double vision COMPARISON: None TECHNIQUE: Computed axial tomography of the head was obtained. IV contrast was not requested. All CT scans are performed using dose optimization technique as appropriate and may include automated exposure control or mA/KV adjustment according to patient size. FINDINGS: An intracranial bleed is not seen . The ventricles are normal in caliber. No extra-axial fluid collection is noted. 3.8 centimeter low density area right cerebellum. 2.4 centimeter low-density area right occipital lob e. Both have the appearance of relatively acute infarcts. 1.5 centimeter low-density area left cerebellum Fluid within the maxillary sinuses may indicate acute sinusitis IMPRESSION: Relatively acute infarcts right cerebellum and right occipital lobe 1.5 centimeter low-density area left cerebellum may indicate acute or subacute infarct. Pt nurse Chastity notified 6:11 p.m. August 18, 2021
[2021-08-19 05:29] LABS: Absolute Lymphocytes (CBC) 0.1 K/uL (0.7-4.9); Hematocrit 27.5 % (36.0-45.0); Lymphocytes % 4.2 % (15.3-44.8)
[2021-08-19 05:44] LABS: BUN Blood Urea Nitrogen 24 mg/dL (7-18); Bicarbonate 23 mmol/L (21-32); Glucose Level 237 mg/dL (74-106); Potassium 4.5 mmol/L (3.5-5.1); Sodium Level 138 mmol/L (136-145)
[2021-08-19] MEDS: ROSUVASTATIN 10 MG TAB PO SCH (09:00)
[2021-08-19] MEDS: dexAMETHasone 4 MG TAB PO SCH (09:00)
[2021-08-19] MEDS: METFORMIN HCL 500 MG TAB PO SCH ×2 (10:04→20:27)
[2021-08-19] MEDS: FOLIC ACID 1 MG TABLET PO SCH (10:04)
[2021-08-19] MEDS: ZINC SULFATE 220 MG CAP PO SCH (10:04)
[2021-08-19] MEDS: ASPIRIN EC 81 MG TAB PO SCH (10:05)
[2021-08-19] MEDS: INSULIN -REGULAR HUMAN 50 UNIT/0.5 ML ML SQ SCH ×4 (10:05→21:26)
[2021-08-19] MEDS: POLYETHYL GLY 3350 17 GM/DOSE PO SCH (10:05)
[2021-08-19] MEDS: CEFTRIAXONE 1,000 MG in NA CHLORIDE 0.9% 50 ML IVPB SCH (10:06)
[2021-08-19] MEDS: Levofloxacin 750mg IV 750 MG/150 ML BAG IV SCH (10:16)
[2021-08-19] MEDS: dexAMETHasone 4 MG/ML VIAL IV SCH ×2 (10:16→20:27)
--- NOTE | 2021-08-19 12:10 | P.CNS ---
Date of Consult: 08/19/21 Reason for Consult: Pneumonia Chief Complaint: Weakness, cough History of Present Illness: Patient is 86 years of age was recently discharged surgical medical problems including cirrhosis hypertension diagnosed with coronavirus pneumonia admitted with nausea vomiting constipation found to be hypoxic CT scan shows worsening pneumonia currently on nasal cannula oxygen still short of breath 8 Allergies No Known Allergies Allergy (Unverified 08/10/21 19:11) Home Medications: Budesonide [Budesonide Dr] 3 mg PO DAILY 08/11/21 Calcium Carbonate [Calcium] 2,000 mg PO DAILY 08/11/21 Cholecalciferol (Vitamin D3) [Vitamin D 1000 Iu Tab*] 1,000 unit PO DAILY 08/11/21 Metformin HCl [Glucophage*] 500 mg PO BID 08/11/21 Multivitamin 1 each PO DAILY 08/11/21 Rosuvastatin Calcium 5 mg PO DAILY 08/11/21 Solifenacin [Vesicare*] 10 mg PO DAILY 08/11/21 Timolol Maleate/Pf [Timolol Maleate 0.5% Eye Drop] 1 each OP DAILY 08/11/21 azaTHIOprine [Azathioprine] 75 mg PO DAILY 08/11/21 Ascorbic Acid [Vitamin C*] 1,000 mg PO BID #120 tablet 08/13/21 Glucerna Shake [Glucerna*] 237 ml PO BID #60 can 08/13/21 Zinc Sulfate [Zinc Sulfate*] 220 mg PO DAILY #30 cap 08/13/21 predniSONE [Deltasone] 20 mg PO BID #15 tab 08/13/21 - Past Medical/Surgical History Diabetic: Yes -: Liver cirrhosis -: Diabetes -: Coronavirus pneumonia -: Back surgery - Social History Alcohol use: No CD- Drugs: No Caffeine use: No Place of Residence: Home Review of Systems General: Weakness Respiratory: Cough, Shortness of Breath Physical Examination Temp Pulse Resp BP Pulse Ox 98.4 F 69 16 143/62 H 96 08/19/21 12:00 08/19/21 12:00 08/19/21 12:00 08/19/21 12:00 08/19/21 12:00 General: Alert, Oriented x3, Cooperative Respiratory: Crackles/rales (Bilateral) Cardiovascular: No edema, Regular rate/rhythm - Problems (1) Pneumonia due to 2019 novel coronavirus Current Visit: No Status: Acute Plan: Patient is 86 years of age recurrent hospital admission CT scan shows significant bilateral interstitial changes chemistries reviewed white count is slightly low 8 with levofloxacin and doxycycline at risk for GERD acquired pneumonia superinfection to new with steroid continue with Decadron changed over to IV levofloxacin patient has a new stroke. Pt is alert responsive and eating, Obeying commands
--- NOTE | 2021-08-19 12:16 | RAD REPORT ---
EXAM DESCRIPTION: MRI - MRA Head Wo Cont - 08/19/2021 11:24 am CLINICAL HISTORY: CVA, altered mental status, confusion COMPARISON: CT head same date TECHNIQUE: Axial and coronal 3D [id number] image acquisition was performed. 3D rotational images were generated with source and reconstruction images reviewed. Horizontal and vertical axis rotation al views generated using MIP protocol. FINDINGS: Distal internal carotid arteries show no dissection, significant atherosclerotic change or other significant finding. Mild to moderate atherosclerotic changes are scattered throughout the prince ateral peripheral middle cerebral artery branches. The left anterior cerebral artery A1 segment is ve ry small and irregular. This is potentially normal anatomic variant or significant atherosclerotic ch rubens. There is a dominant right CORKY vessel supplying the anterior cerebral artery distribution. Much smaller left anterior cerebral artery is seen. Both posterior communicating arteries are seen and probably supply the majority of the posterior cere bral artery circulation. The far peripheral [employer]ICAL AFFAIRS [employer]IST branches show numerous areas of significant atheroscl erotic narrowing. Basilar artery is tortuous but without focal stenosis. No distal vertebral artery significant finding . IMPRESSION: Significant intracranial atherosclerotic changes are present without basilar or distal I CA significant disease. No named branch occlusion seen.
--- NOTE | 2021-08-19 12:25 | RAD REPORT ---
EXAM DESCRIPTION: MRI - Brain W/Wo Cont - 08/19/2021 11:32 am CLINICAL HISTORY: CVA COMPARISON: MRA Head Wo Cont dated 08/19/2021; Head Brain Wo Cont dated 08/18/2021head CT August 18 TECHNIQUE: Sagittal and axial T1-weighted images were obtained. Axial PD/heavily T2-weighted and T2- FLAIR images were obtained along with axial DWI/ADC mapping sequences. Coronal heavily T2 weighted s equence obtained. Axial and coronal post-contrast T1-weighted images were also obtained. A 12 ml Mul tihance contrast following utilized. FINDINGS: No intracranial hemorrhage is present. Punctate focus of restricted diffusion seen in the subcortical white matter left frontal parietal junction. Corresponding diminished signal is present o n ADC mapping. There is a punctate focus of diffusion signal abnormality in the periventricular porti on of the right head of the caudate. Signal is diminished on the ADC mapping sequence. A 2.6 cm focus of abnormal diffusion signal is present in the posterior right occipital lobe with corresponding dim inished ADC mapping signal. A large 4.5 centimeter area of abnormal diffusion is present in the anter omedial right cerebellum extending into the cerebellar peduncle and right posterior dav. Right-side of the vermis is similarly involved. There is diminished signal on ADC mapping. Two areas approximate ly 1.5 cm in size are present has abnormal diffusion in the left cerebellum. Posterior right cerebell um 1.5 cm area of abnormal diffusion signal present. These all have associated diminished ADC mapping . Corresponding hypointense T1 and hyperintense T2 signal abnormalities are present. No significant mass effect or edema seen. No midline shift. No abnormal extra-axial fluid collections . Signal voids are seen as a normal finding in the major intracranial vessels. Post-contrast images show normal enhancement. No dural thickening. Mastoid air cells and paranasal sinuses are clear. IMPRESSION: Numerous moderate to large sized nonhemorrhagic acute/subacute infarctions are present i n the cerebellum with the anteromedial right cerebellum and vermis infarction extending into the post erior right dav. Additional punctate infarction changes are seen in the right head of the caudate and left cerebral wh ite matter. Infarction pattern involves both anterior and posterior circulations.
--- NOTE | 2021-08-19 12:28 | RAD REPORT ---
EXAM DESCRIPTION: MRI - MRA Neck W/Wo Cont - 08/19/2021 11:32 am CLINICAL HISTORY: Multiple intracranial nonhemorrhagic infarctions COMPARISON: MRI brain same date, MRA head same date TECHNIQUE: MR angiography of the cervical vasculature performed. Coronal imaging plane acquisition u tilized. A 12th MultiHance contrast volume was utilized. Coronal reformatted images were generated an d reviewed. Vertical axis 3D rotational projections obtained using maximum intensity projection josé miguel col. FINDINGS: Aortic arch is 3 vessel configuration with left vertebral artery origin shows only minimal narrowing. Right vertebral artery origin is unremarkable. Left vertebral artery is dominant. No diss ection or significant atherosclerotic changes identifiable. No basilar artery abnormality seen. The b ilateral common carotid and internal carotid arteries show no stenosis, dissection or significant ath erosclerotic change. IMPRESSION: MRA neck examination shows no significant or suspicious finding. The absence of any carotid or vertebral disease in the setting of both anterior and posterior circula tion infarction could indicate cardiac source for emboli
[2021-08-19] MEDS: ENOXAPARIN 40 MG/0.4 ML SQ SCH (17:52)
--- NOTE | 2021-08-19 22:41 | P.PN ---
Subjective Date of Service: 08/19/21 Subjective: No new changes, No C/O voiced, Improving Review of Systems 10-point ROS is otherwise unremarkable Physical Examination - Vital Signs Temperature: 96.3 F Blood Pressure: 110/61 Pulse: 79 Respirations: 16 Pulse Ox (%): 96 - Physical Exam General: Alert, In no apparent distress, Oriented x3 Respiratory: Clear to auscultation bilaterally, Normal air movement Cardiovascular: Regular rate/rhythm, Normal S1 S2, No murmurs Gastrointestinal: Normal bowel sounds, Soft and benign, Non-distended, No tenderness Musculoskeletal: No clubbing, No swelling, No tenderness Neurological: Sensation intact, Cranial nerves 3-12 intact - Studies Medications List Reviewed: Yes Assessment & Plan - Problems (Diagnosis) (1) Pneumonia due to 2019 novel coronavirus Current Visit: No Status: Acute (2) Diabetes mellitus type 2 in nonobese Current Visit: No Status: Acute (3) Liver cirrhosis Current Visit: No Status: Acute (4) UTI (urinary tract infection) Current Visit: No Status: Acute (5) Acute CVA (cerebrovascular accident) Current Visit: Yes Status: Acute - Plan 1. Continue with IV antibiotics; continue with antiplatelet therapy and statin therapy 2. Awaiting sputum and blood culture 3. Repeat chest x-ray 4. Will proceed with CT scan of the chest 5. Appreciate pulmonary consultation; consult neurology 6. Continue with nebs as needed 7. O2 per protocol 8. Continue with gentle hydration 9. Repeat labs including CBC and renal function in a.m. 10. GI and DVT prophylaxis Discharge Plan: Home Plan to discharge in: Greater than 2 days - Advance Directives Does patient have a Living Will: No Does patient have a Durable POA for Healthcare: No - Code Status/Comfort Care Code Status Assessed: Yes Code Status: Full Code Physician Review: Patient Assessed, Agree with Above Assessment and Plan Critical Care: No Time Spent Managing PTS Care (In Minutes): 35
[2021-08-20 03:56] LABS: Absolute Lymphocytes (CBC) 0.2 K/uL (0.7-4.9); Lymphocytes % 6.2 % (15.3-44.8); MPV 8.9 fL (7.6-11.3); RBC Red Blood Cell Count 2.82 M/uL (3.86-4.86)
[2021-08-20 04:13] LABS: BUN Blood Urea Nitrogen 13 mg/dL (7-18); Bicarbonate 23 mmol/L (21-32); Glucose Level 140 mg/dL (74-106); Potassium 4.2 mmol/L (3.5-5.1); Sodium Level 139 mmol/L (136-145)
[2021-08-20 05:26] LABS: Folic Acid, (Folate) 19.2 ng/mL (3.1-17.5); Magnesium 2.2 mg/dL (1.8-2.4); Thyroid Stimulating Hormone 0.191 uIU/mL (0.360-3.740)
[2021-08-20] MEDS: INSULIN -REGULAR HUMAN 50 UNIT/0.5 ML ML SQ SCH ×4 (07:30→20:52)
--- NOTE | 2021-08-20 08:50 | RAD REPORT ---
EXAM DESCRIPTION: US - CP - 08/20/2021 6:15 am CLINICAL HISTORY: CVA Headache, drowsiness, CVA COMPARISON: MRA Neck W/Wo Cont dated 08/19/2021 TECHNIQUE: Real-time sonographic evaluation of both carotid systems was performed. Doppler interroga tion was performed with waveform tracing bilaterally. FINDINGS: Normal high resistance waveforms are noted in both external carotid arteries. The common c arotid arteries and internal carotid arteries show normal low resistance waveforms. Small amount of soft plaquing left carotid bulb. Peak systolic and end diastolic velocity values and the ICA/CCA ratios are in the non-hemodynamically significant range. Antegrade flow seen in both vertebral arteries. IMPRESSION: Small amount of soft plaquing left carotid bulb. No evidence of a hemodynamically significant stenosis.
[2021-08-20] MEDS: ASPIRIN EC 81 MG TAB PO SCH (09:24)
[2021-08-20] MEDS: METFORMIN HCL 500 MG TAB PO SCH ×2 (09:24→20:50)
[2021-08-20] MEDS: FOLIC ACID 1 MG TABLET PO SCH (09:24)
[2021-08-20] MEDS: ZINC SULFATE 220 MG CAP PO SCH (09:24)
[2021-08-20] MEDS: dexAMETHasone 4 MG/ML VIAL IV SCH ×2 (09:24→20:50)
[2021-08-20] MEDS: ENOXAPARIN 40 MG/0.4 ML SQ SCH (09:25)
[2021-08-20] MEDS: POLYETHYL GLY 3350 17 GM/DOSE PO SCH (09:26)
[2021-08-20] MEDS: Levofloxacin 750mg IV 750 MG/150 ML BAG IV SCH (10:00)
[2021-08-20] MEDS: ROSUVASTATIN 10 MG TAB PO SCH (12:28)
--- NOTE | 2021-08-20 13:00 | P.PN ---
Subjective Date of Service: 08/20/21 Chief Complaint: Weakness, cough Stable refusing to eat or drink Review of Systems General: Weakness Respiratory: Shortness of Breath Physical Examination - Vital Signs Temperature: 96.3 F Blood Pressure: 134/69 Pulse: 77 Respirations: 16 Pulse Ox (%): 93 - Physical Exam General: Alert, Cooperative Respiratory: Crackles/rales Cardiovascular: No edema, Normal pulses - Studies Medications List Reviewed: Yes Assessment And Plan - Current Problems (Diagnosis) (1) Pneumonia due to 2019 novel coronavirus Current Visit: No Status: Acute Plan: Con stable refusing ot eat or drink, 96% RA/ recent stroke CW IV levaquin and steroids Dobhoff ?/ VS stable Physician Review: Patient Assessed, Agree with Above Assessment and Plan
--- NOTE | 2021-08-20 13:28 | P.PN ---
Date of Service: 08/20/21 Subjective Subjective: Patient is doing okay. She was on some oxygen today that she was not on yesterday. However, her oxygen saturations are 100%. Spoke to the daughter and updated her on her clinical status. Told her we would work on inpatient rehabilitation as she has had a significant stroke. She does not have a lot of deficits at this time just some generalized weakness and confusion which is improving. Hopefully she can qualify for inpatient rehab. Review of Systems 10-point ROS is otherwise unremarkable Physical Examination - Vital Signs reviewed - Physical Exam General: Alert, In no apparent distress, Oriented x3 Respiratory: Clear to auscultation bilaterally, Normal air movement Cardiovascular: Regular rate/rhythm, Normal S1 S2, No murmurs Gastrointestinal: Normal bowel sounds, Soft and benign, Non-distended, No tenderness Musculoskeletal: No clubbing, No swelling, No tenderness Neurological: Sensation intact, Cranial nerves 3-12 intact Assessment & Plan - Problems (Diagnosis) (1) Pneumonia due to 2019 novel coronavirus Current Visit: No Status: Acute (2) Diabetes mellitus type 2 in nonobese Current Visit: No Status: Acute (3) Liver cirrhosis Current Visit: No Status: Acute (4) UTI (urinary tract infection) Current Visit: No Status: Acute (5) Acute CVA (cerebrovascular accident) Current Visit: Yes Status: Acute - Plan Continue plan of care as mentioned below: 1. Continue with IV antibiotics; continue with antiplatelet therapy and statin therapy 2. Awaiting sputum and blood culture 3. Repeat chest x-ray 4. Will proceed with CT scan of the chest 5. Appreciate pulmonary consultation; consult neurology 6. Continue with nebs as needed 7. O2 per protocol 8. Continue with gentle hydration 9. Repeat labs including CBC and renal function in a.m. 10. GI and DVT prophylaxis Discharge Plan: Home Plan to discharge in: Greater than 2 days - Advance Directives Does patient have a Living Will: No Does patient have a Durable POA for Healthcare: No - Code Status/Comfort Care Code Status Assessed: Yes Code Status: Full Code Physician Review: Patient Assessed, Agree with Above Assessment and Plan Critical Care: No Time Spent Managing PTS Care (In Minutes): 35
[2021-08-21 06:21] LABS: Absolute Lymphocytes (CBC) 0.2 K/uL (0.7-4.9); Hematocrit 30.5 % (36.0-45.0); MPV 8.1 fL (7.6-11.3); RBC Red Blood Cell Count 3.02 M/uL (3.86-4.86)
[2021-08-21 06:42] LABS: BUN Blood Urea Nitrogen 26 mg/dL (7-18); Bicarbonate 23 mmol/L (21-32); Glucose Level 172 mg/dL (74-106); Potassium 4.2 mmol/L (3.5-5.1); Sodium Level 136 mmol/L (136-145)
[2021-08-21] MEDS: INSULIN -REGULAR HUMAN 50 UNIT/0.5 ML ML SQ SCH ×4 (07:30→21:00)
--- NOTE | 2021-08-21 07:47 | ECHO ---
HEIGHT: 4 ft 11 in WEIGHT: 105 lb 0 oz DATE OF STUDY: 08/20/[address]: Talha Cutler NP 2-DIMENSIONAL: YES M.MODE: YES DOPPLER: YES COLOR FLOW: YES TDS: NO PORTABLE: NO DEFINITY: NO BUBBLE STUDY: NO DIAGNOSIS: CEREBRAL VASCULAR ACCIDENT CARDIAC HISTORY: CATHERIZATION: NO SURGERY: NO PROSTHETIC VALVE: NO PACEMAKER: NO MEASUREMENTS (cm) DIASTOLIC (NORMALS) SYSTOLIC (NORMALS) IVSd 1.0 (0.6-1.2) LA Diam 2.4 (1.9-4.0) LVEF 52% LVIDd 3.1 (3.5-5.7) LVIDs 2.3 (2.0-3.5) %FS 26% LVPWd 1.1 (0.6-1.2) Ao Diam 2.3 (2.0-3.7) 2 DIMENSIONAL ASSESSMENT: RIGHT ATRIUM: NORMAL LEFT ATRIUM: NORMAL RIGHT VENTRICLE: NORMAL LEFT VENTRICLE: NORMAL TRICUSPID VALVE: NORMAL MITRAL VALVE: NORMAL PULMONIC VALVE: NORMAL AORTIC VALVE: NORMAL PERICARDIAL EFFUSION: NONE AORTIC ROOT: NORMAL LEFT VENTRICULAR WALL MOTION: NORMAL. DOPPLER/COLOR FLOW: NORMAL. COMMENTS: NORMAL 2D ECHO WITH DOPPLER. NO WALL MOTION ABNORMALITY. NO EFFUSION. NO THROMBUS OR VEGETATION. TECHNOLOGIST: MOUNA SYLVESTER
[2021-08-21] MEDS: ASPIRIN EC 81 MG TAB PO SCH (08:58)
[2021-08-21] MEDS: FOLIC ACID 1 MG TABLET PO SCH (08:58)
[2021-08-21] MEDS: METFORMIN HCL 500 MG TAB PO SCH ×2 (08:58→21:04)
[2021-08-21] MEDS: ENOXAPARIN 40 MG/0.4 ML SQ SCH (08:58)
[2021-08-21] MEDS: dexAMETHasone 4 MG/ML VIAL IV SCH ×2 (08:58→21:04)
[2021-08-21] MEDS: POLYETHYL GLY 3350 17 GM/DOSE PO SCH (08:58)
[2021-08-21] MEDS: ROSUVASTATIN 10 MG TAB PO SCH (09:03)
[2021-08-21] MEDS: Levofloxacin 750mg IV 750 MG/150 ML BAG IV SCH (10:18)
--- NOTE | 2021-08-21 12:35 | P.PN ---
Subjective Date of Service: 08/21/21 Chief Complaint: Coronavirus pneumonia Patient not doing well she is less responsive not eating and drinking Review of Systems is unable to be obtained Physical Examination - Vital Signs Temperature: 97.2 F Blood Pressure: 112/61 Pulse: 77 Respirations: 19 Pulse Ox (%): 95 - Physical Exam General: Unresponsive Respiratory: Clear to auscultation bilaterally, Crackles/rales Cardiovascular: No edema, Regular rate/rhythm - Studies Medications List Reviewed: Yes Assessment And Plan - Current Problems (Diagnosis) (1) Pneumonia due to 2019 novel coronavirus Current Visit: No Status: Acute Plan: Patient has coronavirus pneumonia bilateral severe disease mild neutropenia chemistries reviewed no evidence of obvious sepsis reduce dose of fluoroquinolone oxygenation satisfactory patient recently had a stroke. Transfer to a rehab unit evaluate for DNR Physician Review: Patient Assessed, Agree with Above Assessment and Plan
[2021-08-21] MEDS ORDERED: Levofloxacin500mg IV 500 MG/100 ML BAG IV SCH (13:00)
[2021-08-21] MEDS: DULOXETINE 20 MG CAP PO SCH (17:35)
[2021-08-21] MEDS: THIAMINE 200 MG/2 ML INJ IVP SCH (21:04)
--- NOTE | 2021-08-22 00:55 | CON ---
Consultation called because of stroke. History Of Present Illness: Ms. Balderas is an 86-year-old patient, who was admitted to [facility] on August 17 with nausea and vomiting. Her initial head CT scan was remarkable for a 1.5 cm low-density area in the left cerebellum indicating of a possible subacute infarct. In terms of onset of her symptoms, there was no clear time of onset and the patient was never felt to be in a ny window for tissue plasminogen activator. She did arrive at [facility] on 04/02 on 2021; however, her symptom onset was unknown. A subsequent MRI of her brain identified a large 4.5 c m anteromedial right cerebellar stroke extending into the peduncle and right posterior dav. Further more, there was involvement of the right side of the vermis and with an additional 2.6 cm focus of a stroke in the posterior right occipital lobe. The patient was felt to have numerous [id number] e size nonhemorrhagic strokes in both the anterior, medial right cerebellum, vermis, and the right po ns. Furthermore, there were additional punctate strokes in the right head of the caudate and left ce rebral white matter. The pattern of both anterior and posterior circulation involvement likely indic ated cardioembolic sources of stroke. It should be noted she was infected with the COVID-19 virus an d was still positive at the time of her admission to the hospital. Infection was within 2 weeks. At the time of my evaluation, the patient's daughters were at bedside. She kept repeating "let me , I do not want any exercise or therapy, let me " and the patient's daughters were talking to her, trying to encourage her to participate in therapy. She did have an echocardiogram done subsequently, which showed no thrombus or vegetation, no effusions. This was a transthoracic echocardiogram. Her carotid artery ultrasound showed a small amount of soft plaque in the left carotid bulb with no evid ence of hemodynamically significant stenosis. The MRA of her neck showed no significant or suspiciou s findings. There was no significant disease in the carotid or vertebral arteries, which again was c onsistent with a cardiac source of emboli. Past Medical History: Cirrhosis of the liver, diabetes mellitus. Past Surgical History: Back surgery. Allergies: NO KNOWN DRUG ALLERGIES. Medications: At home, calcium 2000 mg daily, vitamin D3 1000 International Units daily, Glucophage 5 00 mg twice daily, multivitamin daily, rosuvastatin, calcium 500 mg daily, VESIcare 10 mg daily, gutierrez lol maleate 0.5 mg drops each eye daily, azathioprine 75 mg daily, vitamin C 1000 mg daily, Glucerna 237 mg twice daily, zinc sulfate 200 mg daily, prednisone 20 mg twice daily. Family History: Noncontributory. Social History: No alcohol, tobacco, or IV drug use. Review of Systems: The patient just keeps repeating "I want to , I do not want to do any therapy." She did not answe r any questions regarding her review of systems. Per the patient's daughter, she did have symptomati c COVID with cough and fever and required oxygen supplementation and was treated with steroids. Physical Examination: Vital Signs: Blood pressure , respiratory rate 19, temperature 97.7, oxygen saturation is 100% on oxygen flow of 2 L, weight 105 pounds, height 4 feet 11 inches, BMI 21.2. General: Ms. Balderas is resting in bed. She is alert. She does respond to her daughter. She kept saying "I want to , I do not want any therapy, let me go." She was moving her extremities, but wa s very incoordinated, had dysmetria on movement of the extremities. She did not cooperate or fully a ssess for strength in the upper and lower extremities. Not fully assess sensation or coordination an d she has symmetric reflexes. Laboratory Studies: Complete blood count with differential shows white blood cell count of 2.1, hemo globin 10.5, platelets 106, creatinine 0.41, glucose ranged from 143 to -237, calcium 8.9, LDL choles terol 42, HDL 45. B12 1804, folate 19.2, TSH 0.191, free T4 1.16, magnesium 2.2. Her COVID-19 test was positive twice. Assessment: Ms. Balderas is an 86-year-old patient with anterior, posterior and left, right circulati on strokes likely from a cardioembolic source. She has controlled hypertension and well managed dysl ipidemia. The patient is very depressed following her stroke and is voicing that she does not want t o live. She did have an evaluation by the physical therapist where she ambulated 1-2 feet with maxim um assistance using a rolling walker. She was unable to stand on her own without falling. She requi red maximal assistance for transfers due to an unstable trunk and reported that the patient kept her eyes closed throughout the therapy session. Ms. Balderas is an 86-year-old patient with significant stroke. She actually has a poor prognosis for good recovery. The multiple strokes are likely cardioembolic and potentially related to COVID-19 in fection. Currently, she is on steroids for the COVID-19 infection. She is receiving Lovenox 40 mg s ubcutaneously dose daily. She is on Levaquin for an infection, urinary tract infection. She is not on full dose anticoagulation as her echocardiogram this point shows no evidence of any clot or thromb us. She has probably benefitted from a assisted. She has depression. She should be started on antidepressants and she is actually now on Cymbalta 20 mg daily. This course of management was di scussed with the patient's 2 daughters who were in the room. PRUDENCE/ZULLY Voice ID: [id number] Report ID: [id number]
[2021-08-22 03:43] LABS: Absolute Lymphocytes (CBC) 0.2 K/uL (0.7-4.9); Hematocrit 29.3 % (36.0-45.0); Lymphocytes % 9.9 % (15.3-44.8); MPV 8.5 fL (7.6-11.3); RBC Red Blood Cell Count 2.93 M/uL (3.86-4.86)
[2021-08-22 04:00] LABS: BUN Blood Urea Nitrogen 28 mg/dL (7-18); Bicarbonate 25 mmol/L (21-32); Glucose Level 237 mg/dL (74-106); Potassium 4.5 mmol/L (3.5-5.1); Sodium Level 135 mmol/L (136-145)
[2021-08-22 04:47] LABS: Blood Morphology Comment NOTED (NOT SEEN); Platelet Estimate ADEQ; Polychromasia 1+; White Blood Cell Scan OK (OK)
[2021-08-22] MEDS: INSULIN -REGULAR HUMAN 50 UNIT/0.5 ML ML SQ SCH ×4 (07:30→21:35)
[2021-08-22] MEDS: ENOXAPARIN 40 MG/0.4 ML SQ SCH (08:34)
[2021-08-22] MEDS: METFORMIN HCL 500 MG TAB PO SCH ×2 (08:34→21:38)
[2021-08-22] MEDS: dexAMETHasone 4 MG/ML VIAL IV SCH ×2 (08:34→21:35)
[2021-08-22] MEDS: DULOXETINE 20 MG CAP PO SCH (08:34)
[2021-08-22] MEDS: THIAMINE 200 MG/2 ML INJ IVP SCH ×2 (08:34→21:35)
[2021-08-22] MEDS: FOLIC ACID 1 MG TABLET PO SCH (08:35)
[2021-08-22] MEDS: ASPIRIN EC 81 MG TAB PO SCH (08:35)
[2021-08-22] MEDS: ROSUVASTATIN 10 MG TAB PO SCH (08:35)
[2021-08-22] MEDS: levoFLOXacin 500 MG TAB PO SCH (08:35)
[2021-08-22] MEDS: POLYETHYL GLY 3350 17 GM/DOSE PO SCH (08:58)
[2021-08-22] MEDS ORDERED: HYDROCORTISONE SUC 100 MG INJ IV ONE ×2 (11:40→15:00)
[2021-08-22] MEDS: NYSTATIN 500,000 UNIT/5 ML UDC PO SCH ×3 (13:00→21:35)
[2021-08-22] MEDS ORDERED: NA CHLORIDE 0.9% 1,000 ML ONE (13:16)
[2021-08-22] MEDS ORDERED: METHYLPREDNISOLONE 40 MG INJ ONE (13:17)
[2021-08-22] MEDS: FLUCONAZOLE 200mg IVPB 200 MG/100 ML BAG IV SCH (13:19)
[2021-08-22] MEDS: NA CHLORIDE 0.9% 1,000 ML IV SCH (14:00)
[2021-08-22] MEDS: METHYLPREDNISOLONE 125 MG INJ IV SCH (18:00)
[2021-08-23] MEDS: METHYLPREDNISOLONE 125 MG INJ IV SCH ×2 (01:38→06:00)
[2021-08-23] MEDS: NA CHLORIDE 0.9% 1,000 ML IV SCH ×3 (01:45→10:21)
[2021-08-23 06:17] LABS: Absolute Lymphocytes (CBC) 0.1 K/uL (0.7-4.9); Hematocrit 29.6 % (36.0-45.0); Lymphocytes % 9.7 % (15.3-44.8); MPV 8.4 fL (7.6-11.3)
[2021-08-23 06:59] LABS: ALT/SGPT 51 U/L (12-78); AST/SGOT 37 U/L (15-37); Albumin 2.1 g/dL (3.4-5.0); Alkaline Phosphatase 145 U/L (45-117); BUN Blood Urea Nitrogen 19 mg/dL (7-18); Bicarbonate 24 mmol/L (21-32); Bilirubin Total 0.6 mg/dL (0.2-1.0); Glucose Level 204 mg/dL (74-106); Magnesium 2.2 mg/dL (1.8-2.4); NT PRO-BNP 367 pg/mL (<450); Potassium 4.1 mmol/L (3.5-5.1); Protein, Total 4.8 g/dL (6.4-8.2); Sodium Level 140 mmol/L (136-145); Thyroid Stimulating Hormone 0.137 uIU/mL (0.360-3.740)
[2021-08-23] MEDS: ENOXAPARIN 40 MG/0.4 ML SQ SCH (08:09)
[2021-08-23] MEDS: THIAMINE 200 MG/2 ML INJ IVP SCH ×2 (08:09→20:33)
[2021-08-23] MEDS: POLYETHYL GLY 3350 17 GM/DOSE PO SCH (08:09)
[2021-08-23] MEDS: dexAMETHasone 4 MG/ML VIAL IV SCH ×2 (08:09→20:32)
[2021-08-23] MEDS: NYSTATIN 500,000 UNIT/5 ML UDC PO SCH ×5 (08:09→20:37)
[2021-08-23] MEDS: ASPIRIN EC 81 MG TAB PO SCH (08:10)
[2021-08-23] MEDS: ROSUVASTATIN 10 MG TAB PO SCH (08:10)
[2021-08-23] MEDS: levoFLOXacin 500 MG TAB PO SCH (08:10)
[2021-08-23] MEDS: METFORMIN HCL 500 MG TAB PO SCH ×3 (08:10→20:37)
[2021-08-23] MEDS: FOLIC ACID 1 MG TABLET PO SCH (08:10)
[2021-08-23] MEDS: DULOXETINE 20 MG CAP PO SCH (08:10)
[2021-08-23] MEDS ORDERED: ESCITALOPRAM 20 MG TAB PO SCH (09:00)
[2021-08-23] MEDS ORDERED: dexAMETHasone 4 MG/ML VIAL IV SCH (09:00)
--- NOTE | 2021-08-23 09:25 | P.PN ---
Date of Service: 08/21/21 Subjective Subjective: More talkative today. Clinical symptoms are improving. Patient does look to have some thrush. We will go ahead and start Diflucan. She does follow my commands and answers my questions appropriately. Review of Systems 10-point ROS is otherwise unremarkable Physical Examination - Vital Signs reviewed - Physical Exam General: Alert, In no apparent distress, Oriented x3 Respiratory: Clear to auscultation bilaterally, Normal air movement Cardiovascular: Regular rate/rhythm, Normal S1 S2, No murmurs Gastrointestinal: Normal bowel sounds, Soft and benign, Non-distended, No tenderness Musculoskeletal: No clubbing, No swelling, No tenderness Neurological: Sensation intact, Cranial nerves 3-12 intact; generalized weakness Assessment & Plan - Problems (Diagnosis) (1) Pneumonia due to 2019 novel coronavirus Current Visit: No Status: Acute (2) Diabetes mellitus type 2 in nonobese Current Visit: No Status: Acute (3) Liver cirrhosis Current Visit: No Status: Acute (4) UTI (urinary tract infection) Current Visit: No Status: Acute (5) Acute CVA (cerebrovascular accident) Current Visit: Yes Status: Acute - Plan Continue plan of care as mentioned below: 1. Continue with IV antibiotics; continue with antiplatelet therapy and statin therapy; 2. Cultures are negative; patient with thrush will start Diflucan along with nystatin 3. Repeat chest x-ray as needed; oxygenating well 4. Continue with physical therapy 5. Appreciate pulmonary consultation; appreciate neurology consultation; waiting for rehab 6. Continue with nebs as needed 7. O2 per protocol 8. Diet as tolerated; may give her somme gentle hydration 9. Repeat labs 10. GI and DVT prophylaxis Discharge Plan: rehab Plan to discharge in: Greater than 2 days - Advance Directives Does patient have a Living Will: No Does patient have a Durable POA for Healthcare: No - Code Status/Comfort Care Code Status Assessed: Yes Code Status: Full Code Physician Review: Patient Assessed, Agree with Above Assessment and Plan Critical Care: No Time Spent Managing PTS Care (In Minutes): 35
--- NOTE | 2021-08-23 09:40 | P.PN ---
Date of Service: 08/22/21 Subjective Subjective: Patient appears very depressed. Not really opening her eyes up or talking to me. Spoke to her daughter and we talked about hospice care if she does not improve. At this time they do not really want to do this. Continue with plan of care as mentioned. Review of Systems 10-point ROS is otherwise unremarkable Physical Examination - Vital Signs reviewed - Physical Exam General: Alert, In no apparent distress, Oriented x3 Respiratory: Clear to auscultation bilaterally, Normal air movement Cardiovascular: Regular rate/rhythm, Normal S1 S2, No murmurs Gastrointestinal: Normal bowel sounds, Soft and benign, Non-distended, No tenderness Musculoskeletal: No clubbing, No swelling, No tenderness Neurological: Sensation intact, Cranial nerves 3-12 intact; generalized weakness Assessment & Plan - Problems (Diagnosis) (1) Pneumonia due to 2019 novel coronavirus Current Visit: No Status: Acute (2) Diabetes mellitus type 2 in nonobese Current Visit: No Status: Acute (3) Liver cirrhosis Current Visit: No Status: Acute (4) UTI (urinary tract infection) Current Visit: No Status: Acute (5) Acute CVA (cerebrovascular accident) Current Visit: Yes Status: Acute - Plan Continue plan of care as mentioned below: 1. Continue with IV antibiotics; continue with antiplatelet therapy and statin therapy; 2. Continue with Diflucan along with nystatin 3. Respiratory status is stable. Just depressed and she is really not participating. She is never had any depression before. Family thinks is because she does not want to depend on anyone. May need hospice care 4. Continue with physical therapy 5. Appreciate pulmonary consultation; appreciate neurology consultation; waiting for rehab; 6. Continue with nebs as needed 7. O2 per protocol 8. Monitor volume status closely. If not eating then will start some fluids 9. Repeat labs 10. GI and DVT prophylaxis Discharge Plan: rehab Plan to discharge in: Greater than 2 days - Advance Directives Does patient have a Living Will: No Does patient have a Durable POA for Healthcare: No - Code Status/Comfort Care Code Status Assessed: Yes Code Status: Full Code Physician Review: Patient Assessed, Agree with Above Assessment and Plan Critical Care: No Time Spent Managing PTS Care (In Minutes): 35
[2021-08-23] MEDS: INSULIN -REGULAR HUMAN 50 UNIT/0.5 ML ML SQ SCH ×4 (09:45→20:17)
--- NOTE | 2021-08-23 10:23 | P.PN ---
Subjective Date of Service: 08/23/21 Chief Complaint: Coronavirus pneumonia Patient is not doing well she appears to be very distressed no appropriate replies just shakes her head but eating and drinking much only in the presence of her daughter Review of Systems is unable to be obtained Physical Examination - Vital Signs Temperature: 99.0 F Blood Pressure: 135/64 Pulse: 73 Respirations: 22 Pulse Ox (%): 99 - Physical Exam General: Other (Patient is arousable) Respiratory: Crackles/rales Cardiovascular: No edema, Normal S1 S2 - Studies Microbiology Data (last 24 hrs): 08/17/21 11:00 Blood - Blood Aerobic Blood Culture - Final No growth in 5 days. 08/17/21 11:00 Blood - Blood Anaerobic Blood Culture - Final No growth in 5 days. 08/17/21 10:24 Blood - Blood Aerobic Blood Culture - Final No growth in 5 days. 08/17/21 10:24 Blood - Blood Anaerobic Blood Culture - Final No growth in 5 days. Medications List Reviewed: Yes Assessment And Plan - Current Problems (Diagnosis) (1) Pneumonia due to 2019 novel coronavirus Current Visit: No Status: Acute Plan: Coronavirus pneumonia condition has stabilized oxygenation satisfactory continue to monitor room air patient is pancytopenic I suspect is from the coronavirus infection cultures are negative reduce IV fluid continue with IV steroids continue IV Rocephin she is also on thiamine prognosis poor also had multiple strokes seen by neurology Physician Review: Patient Assessed, Agree with Above Assessment and Plan
[2021-08-23] MEDS ORDERED: NA CHLORIDE 0.9% 1,000 ML ONE (11:37)
[2021-08-23] MEDS: FLUCONAZOLE 200mg IVPB 200 MG/100 ML BAG IV SCH (13:38)
[2021-08-23] MEDS ORDERED: HYDRALAZINE HCL 20 MG/ML VIAL IV PRN (23:48)
[2021-08-24] MEDS: NA CHLORIDE 0.9% 1,000 ML IV SCH ×2 (03:08→19:41)
[2021-08-24] MEDS: INSULIN -REGULAR HUMAN 50 UNIT/0.5 ML ML SQ SCH ×4 (07:30→21:35)
[2021-08-24] MEDS ORDERED: CEFTRIAXONE 1000 MG/VIAL ONE (08:09)
[2021-08-24 08:52] LABS: Absolute Lymphocytes (CBC) 0.2 K/uL (0.7-4.9); Lymphocytes % 8.8 % (15.3-44.8); MPV 7.9 fL (7.6-11.3); RBC Red Blood Cell Count 2.97 M/uL (3.86-4.86)
[2021-08-24] MEDS ORDERED: ALBUTEROL 2.5 MG/3 ML NEB SOL NEB PRN (09:00)
[2021-08-24] MEDS: NYSTATIN 500,000 UNIT/5 ML UDC PO SCH ×4 (09:00→21:37)
[2021-08-24] MEDS: CEFTRIAXONE 1,000 MG in NA CHLORIDE 0.9% 50 ML IVPB SCH (09:00)
[2021-08-24] MEDS: GLUCERNA SHAKE 237 ML CAN PO SCH ×2 (09:00→21:00)
[2021-08-24 09:12] LABS: ALT/SGPT 45 U/L (12-78); AST/SGOT 28 U/L (15-37); Albumin 2.1 g/dL (3.4-5.0); Alkaline Phosphatase 134 U/L (45-117); BUN Blood Urea Nitrogen 22 mg/dL (7-18); Bicarbonate 25 mmol/L (21-32); Bilirubin Total 0.8 mg/dL (0.2-1.0); Glucose Level 151 mg/dL (74-106); Potassium 3.8 mmol/L (3.5-5.1); Protein, Total 4.6 g/dL (6.4-8.2); Sodium Level 139 mmol/L (136-145)
[2021-08-24] MEDS: ROSUVASTATIN 10 MG TAB PO SCH (09:47)
[2021-08-24] MEDS: ENOXAPARIN 40 MG/0.4 ML SQ SCH (09:47)
[2021-08-24] MEDS: DULOXETINE 20 MG CAP PO SCH (09:48)
[2021-08-24] MEDS: FOLIC ACID 1 MG TABLET PO SCH (09:48)
[2021-08-24] MEDS: ASPIRIN EC 81 MG TAB PO SCH (09:48)
[2021-08-24] MEDS: dexAMETHasone 4 MG/ML VIAL IV SCH ×2 (09:49→21:36)
[2021-08-24] MEDS: THIAMINE 200 MG/2 ML INJ IVP SCH ×2 (09:49→21:37)
[2021-08-24] MEDS: POLYETHYL GLY 3350 17 GM/DOSE PO SCH (10:43)
[2021-08-24] MEDS: FLUCONAZOLE 200mg IVPB 200 MG/100 ML BAG IV SCH (12:28)
--- NOTE | 2021-08-24 14:15 | P.PN ---
Date of Service: 08/24/21 Subjective Subjective: Patient is much more awake and alert. She is eating her meals. Odynophagia has resolved. Oropharyngeal candidiasis has improved. Family at bedside. Awaiting for rehab approval. Review of Systems 10-point ROS is otherwise unremarkable Physical Examination - Vital Signs reviewed - Physical Exam General: Alert, In no apparent distress, Oriented x3 Respiratory: Clear to auscultation bilaterally, Normal air movement Cardiovascular: Regular rate/rhythm, Normal S1 S2, No murmurs Gastrointestinal: Normal bowel sounds, Soft and benign, Non-distended, No tenderness Musculoskeletal: No clubbing, No swelling, No tenderness Neurological: Sensation intact, Cranial nerves 3-12 intact; generalized weakness Assessment & Plan - Problems (Diagnosis) (1) Pneumonia due to 2019 novel coronavirus Current Visit: No Status: Acute (2) Diabetes mellitus type 2 in nonobese Current Visit: No Status: Acute (3) autoimmune hepatitis Current Visit: No Status: Acute (4) UTI (urinary tract infection) Current Visit: No Status: Acute (5) Acute CVA (cerebrovascular accident) Current Visit: Yes Status: Acute - Plan Continue plan of care as mentioned below: 1. Continue with IV antibiotics; continue with antiplatelet therapy and statin therapy; change to oral medications 2. Continue with Diflucan along with nystatin; change to oral medications 3. Continue with antidepressant 4. Continue with physical therapy 5. Appreciate pulmonary consultation; appreciate neurology consultation; waiting for rehab; 6. Continue with nebs as needed 7. O2 per protocol 8. Monitor volume status closely. If not eating then will start some fluids 9. Repeat labs 10. GI and DVT prophylaxis Discharge Plan: rehab Plan to discharge in: Greater than 2 days; if not accepted the patient will go home with home health - Advance Directives Does patient have a Living Will: No Does patient have a Durable POA for Healthcare: No - Code Status/Comfort Care Code Status Assessed: Yes Code Status: Full Code Physician Review: Patient Assessed, Agree with Above Assessment and Plan Critical Care: No Time Spent Managing PTS Care (In Minutes): 35
--- NOTE | 2021-08-24 14:15 | P.PN ---
Date of Service: 08/23/21 Subjective Subjective: Patient is clinically doing better today. Spoke with family and they still want rehab or home with home health. Awaiting for insurance approval for rehab Patient is eating better and interacting better. Review of Systems 10-point ROS is otherwise unremarkable Physical Examination - Vital Signs reviewed - Physical Exam General: Alert, In no apparent distress, Oriented x3 Respiratory: Clear to auscultation bilaterally, Normal air movement Cardiovascular: Regular rate/rhythm, Normal S1 S2, No murmurs Gastrointestinal: Normal bowel sounds, Soft and benign, Non-distended, No tenderness Musculoskeletal: No clubbing, No swelling, No tenderness Neurological: Sensation intact, Cranial nerves 3-12 intact; generalized weakness Assessment & Plan - Problems (Diagnosis) (1) Pneumonia due to 2019 novel coronavirus Current Visit: No Status: Acute (2) Diabetes mellitus type 2 in nonobese Current Visit: No Status: Acute (3) autoimmune hepatitis Current Visit: No Status: Acute (4) UTI (urinary tract infection) Current Visit: No Status: Acute (5) Acute CVA (cerebrovascular accident) Current Visit: Yes Status: Acute - Plan Continue plan of care as mentioned below: 1. Continue with IV antibiotics; continue with antiplatelet therapy and statin therapy; 2. Continue with Diflucan along with nystatin 3. Continue with antidepressant 4. Continue with physical therapy 5. Appreciate pulmonary consultation; appreciate neurology consultation; waiting for rehab; 6. Continue with nebs as needed 7. O2 per protocol 8. Monitor volume status closely. If not eating then will start some fluids 9. Repeat labs 10. GI and DVT prophylaxis Discharge Plan: rehab Plan to discharge in: Greater than 2 days; if not accepted the patient will go home with home health - Advance Directives Does patient have a Living Will: No Does patient have a Durable POA for Healthcare: No - Code Status/Comfort Care Code Status Assessed: Yes Code Status: Full Code Physician Review: Patient Assessed, Agree with Above Assessment and Plan Critical Care: No Time Spent Managing PTS Care (In Minutes): 35
[2021-08-24] MEDS: METFORMIN HCL 500 MG TAB PO SCH (16:59)
[2021-08-25 06:17] LABS: Absolute Lymphocytes (CBC) 0.2 K/uL (0.7-4.9); Hematocrit 35.4 % (36.0-45.0); Lymphocytes % 5.2 % (15.3-44.8); MPV 7.8 fL (7.6-11.3); RBC Red Blood Cell Count 3.46 M/uL (3.86-4.86)
[2021-08-25 06:28] LABS: BUN Blood Urea Nitrogen 27 mg/dL (7-18); Bicarbonate 22 mmol/L (21-32); Glucose Level 181 mg/dL (74-106); Magnesium 2.4 mg/dL (1.8-2.4); Potassium 4.1 mmol/L (3.5-5.1); Sodium Level 140 mmol/L (136-145)
[2021-08-25] MEDS: INSULIN -REGULAR HUMAN 50 UNIT/0.5 ML ML SQ SCH ×4 (07:30→21:00)
[2021-08-25] MEDS: METFORMIN HCL 500 MG TAB PO SCH ×3 (08:00→15:32)
[2021-08-25] MEDS: ASPIRIN EC 81 MG TAB PO SCH ×3 (08:28→15:32)
[2021-08-25] MEDS: DULOXETINE 20 MG CAP PO SCH ×3 (08:28→15:33)
[2021-08-25] MEDS: FOLIC ACID 1 MG TABLET PO SCH ×3 (08:28→15:34)
[2021-08-25] MEDS: CEFTRIAXONE 1,000 MG in NA CHLORIDE 0.9% 50 ML IVPB SCH (08:28)
[2021-08-25] MEDS: NYSTATIN 500,000 UNIT/5 ML UDC PO SCH ×5 (08:28→21:07)
[2021-08-25] MEDS: dexAMETHasone 4 MG/ML VIAL IV SCH ×2 (08:29→21:07)
[2021-08-25] MEDS: THIAMINE 200 MG/2 ML INJ IVP SCH ×2 (08:29→21:07)
[2021-08-25] MEDS: POLYETHYL GLY 3350 17 GM/DOSE PO SCH ×3 (08:29→15:31)
[2021-08-25] MEDS: ENOXAPARIN 40 MG/0.4 ML SQ SCH (08:29)
[2021-08-25] MEDS: GLUCERNA SHAKE 237 ML CAN PO SCH ×3 (08:31→21:00)
[2021-08-25] MEDS: ROSUVASTATIN 10 MG TAB PO SCH ×3 (08:35→15:32)
[2021-08-25] MEDS: FLUCONAZOLE 200mg IVPB 200 MG/100 ML BAG IV SCH (13:04)
[2021-08-25] MEDS: NA CHLORIDE 0.9% 1,000 ML IV SCH (14:24)
--- NOTE | 2021-08-25 18:37 | P.PN ---
Date of Service: 08/25/21 Subjective Subjective: Patient more lethargic today. She was wide-awake and answering questions yesterday. She has been resting throughout the day. Reassess in a.m. Awaiting for placement at inpatient rehab or home with home health. Long-term prognosis may be poor. Family may need to consider addressing her CODE STATUS. She states that she does not want to suffer too much more. We will have we will continue to try to get her to rehab for her CVA. Review of Systems 10-point ROS is otherwise unremarkable Physical Examination - Vital Signs reviewed - Physical Exam General: Alert, In no apparent distress, Oriented x3 Respiratory: Clear to auscultation bilaterally, Normal air movement Cardiovascular: Regular rate/rhythm, Normal S1 S2, No murmurs Gastrointestinal: Normal bowel sounds, Soft and benign, Non-distended, No tenderness Musculoskeletal: No clubbing, No swelling, No tenderness Neurological: Sensation intact, Cranial nerves 3-12 intact; generalized weakness Assessment & Plan - Problems (Diagnosis) (1) Pneumonia due to 2019 novel coronavirus Current Visit: No Status: Acute (2) Diabetes mellitus type 2 in nonobese Current Visit: No Status: Acute (3) autoimmune hepatitis Current Visit: No Status: Acute (4) UTI (urinary tract infection) Current Visit: No Status: Acute (5) Acute CVA (cerebrovascular accident) Current Visit: Yes Status: Acute - Plan Continue plan of care as mentioned below: 1. Continue with IV antibiotics; continue with antiplatelet therapy and statin therapy; 2. Continue with Diflucan along with nystatin; odynophagia has improved 3. Continue with antidepressant 4. Continue with physical therapy 5. Appreciate pulmonary consultation; appreciate neurology consultation; waiting for rehab; if not accepted the patient will go home with home health with family 6. Continue with nebs as needed 7. O2 per protocol 8. Monitor volume status closely. If not eating then will start some fluids 9. Repeat labs 10. GI and DVT prophylaxis Discharge Plan: rehab Plan to discharge in: Greater than 2 days; if not accepted the patient will go home with home health - Advance Directives Does patient have a Living Will: No Does patient have a Durable POA for Healthcare: No - Code Status/Comfort Care Code Status Assessed: Yes Code Status: Full Code Physician Review: Patient Assessed, Agree with Above Assessment and Plan Critical Care: No Time Spent Managing PTS Care (In Minutes): 35
[2021-08-26] MEDS: GLUCERNA SHAKE 237 ML CAN PO SCH ×2 (09:00→21:00)
[2021-08-26] MEDS: METFORMIN HCL 500 MG TAB PO SCH ×2 (09:37→18:02)
[2021-08-26] MEDS: DULOXETINE 20 MG CAP PO SCH (09:37)
[2021-08-26] MEDS: dexAMETHasone 4 MG/ML VIAL IV SCH ×2 (09:37→21:36)
[2021-08-26] MEDS: FOLIC ACID 1 MG TABLET PO SCH (09:37)
[2021-08-26] MEDS: ASPIRIN EC 81 MG TAB PO SCH (09:37)
[2021-08-26] MEDS: ROSUVASTATIN 10 MG TAB PO SCH (09:37)
[2021-08-26] MEDS: CEFTRIAXONE 1,000 MG in NA CHLORIDE 0.9% 50 ML IVPB SCH (09:38)
[2021-08-26] MEDS: NYSTATIN 500,000 UNIT/5 ML UDC PO SCH ×4 (09:38→21:38)
[2021-08-26] MEDS: POLYETHYL GLY 3350 17 GM/DOSE PO SCH (09:38)
[2021-08-26] MEDS: ENOXAPARIN 40 MG/0.4 ML SQ SCH (09:38)
[2021-08-26] MEDS: THIAMINE 200 MG/2 ML INJ IVP SCH ×2 (09:38→21:36)
[2021-08-26] MEDS: INSULIN -REGULAR HUMAN 50 UNIT/0.5 ML ML SQ SCH ×4 (09:39→21:00)
[2021-08-26] MEDS: FLUCONAZOLE 200mg IVPB 200 MG/100 ML BAG IV SCH (13:05)
--- NOTE | 2021-08-26 15:44 | P.PN ---
Subjective Date of Service: 08/26/21 Chief Complaint: Coronavirus pneumonia Subjective: No new changes (Patient is drowsy, keeps eyes closed but able to respond by head movement, nursing staff reports she tolerated her p.o. intake well today ) Physical Examination - Vital Signs Temperature: 98.2 F Blood Pressure: 124/73 Pulse: 93 Respirations: 18 Pulse Ox (%): 93 - Studies Medications List Reviewed: Yes Assessment And Plan Physician Review: Patient Assessed, Agree with Above Assessment and Plan Physician Review Additional Text: - Physical Exam General: Elderly small size female, awake, and keeps eyes closed except when asked, Respiratory: Clear to auscultation bilaterally, Normal air movement Cardiovascular: Regular rate/rhythm, Normal S1 S2, No murmurs Gastrointestinal: Normal bowel sounds, Soft and benign, Non-distended, No tenderness Musculoskeletal: No clubbing, No swelling, No tenderness Neurological: Sensation intact, Cranial nerves 3-12 intact; generalized weakness Assessment & Plan - Problems (Diagnosis) (1) Pneumonia due to 2019 novel coronavirus Current Visit: No Status: Acute (2) Diabetes mellitus type 2 in nonobese Current Visit: No Status: Acute (3) autoimmune hepatitis Current Visit: No Status: Acute (4) UTI (urinary tract infection) Current Visit: No Status: Acute (5) Acute CVA (cerebrovascular accident) Current Visit: Yes Status: Acute - Plan Follow plan for placement, denied inpatient rehab Follow-up plan for SNF or discharge home with family 1. Continue with IV antibiotics; continue with antiplatelet therapy and statin therapy; 2. Continue with Diflucan along with nystatin; odynophagia has improved 3. Continue with antidepressant 4. Continue with physical therapy 5. Appreciate pulmonary consultation; appreciate neurology consultation 6. Continue with nebs as needed 7. O2 per protocol 8. Tolerating p.o. better, DC IVF 10. GI and DVT prophylaxis Discharge Plan: rehab Plan to discharge in: Greater than 2 days; if not accepted the patient will go home with home health - Advance Directives Does patient have a Living Will: No Does patient have a Durable POA for Healthcare: No - Code Status/Comfort Care Code Status Assessed: Yes Code Status: Full Code Physician Review: Patient Assessed, Agree with Above Assessment and Plan Critical Care: No Time Spent Managing PTS Care (In Minutes):
[2021-08-26] MEDS: ONDANSETRON 4 MG/2 ML VIAL IV PRN (20:11)
[2021-08-26] MEDS: NA CHLORIDE 0.9% 1,000 ML IV SCH (21:41)
[2021-08-27] MEDS: NA CHLORIDE 0.9% 1,000 ML IV SCH ×2 (03:51→14:21)
[2021-08-27 04:18] LABS: Absolute Lymphocytes (CBC) 0.2 K/uL (0.7-4.9); Hematocrit 31.8 % (36.0-45.0); Lymphocytes % 5.4 % (15.3-44.8); MPV 7.8 fL (7.6-11.3); RBC Red Blood Cell Count 3.13 M/uL (3.86-4.86)
[2021-08-27 04:41] LABS: ALT/SGPT 73 U/L (12-78); AST/SGOT 39 U/L (15-37); Alkaline Phosphatase 192 U/L (45-117); BUN Blood Urea Nitrogen 24 mg/dL (7-18); Bicarbonate 22 mmol/L (21-32); Bilirubin Total 0.5 mg/dL (0.2-1.0); Glucose Level 162 mg/dL (74-106); Potassium 3.7 mmol/L (3.5-5.1); Protein, Total 4.7 g/dL (6.4-8.2); Sodium Level 141 mmol/L (136-145)
[2021-08-27 04:55] LABS: Blood Morphology Comment NOT SEEN (NOT SEEN); Platelet Estimate ADEQ
[2021-08-27] MEDS: INSULIN -REGULAR HUMAN 50 UNIT/0.5 ML ML SQ SCH ×3 (07:30→16:41)
[2021-08-27] MEDS: ROSUVASTATIN 10 MG TAB PO SCH (08:31)
[2021-08-27] MEDS: POLYETHYL GLY 3350 17 GM/DOSE PO SCH (08:31)
[2021-08-27] MEDS: THIAMINE 200 MG/2 ML INJ IVP SCH (08:31)
[2021-08-27] MEDS: DULOXETINE 20 MG CAP PO SCH (08:32)
[2021-08-27] MEDS: NYSTATIN 500,000 UNIT/5 ML UDC PO SCH ×3 (08:32→17:00)
[2021-08-27] MEDS: METFORMIN HCL 500 MG TAB PO SCH ×2 (08:32→17:00)
[2021-08-27] MEDS: FOLIC ACID 1 MG TABLET PO SCH (08:32)
[2021-08-27] MEDS: ENOXAPARIN 40 MG/0.4 ML SQ SCH (08:32)
[2021-08-27] MEDS: dexAMETHasone 4 MG/ML VIAL IV SCH (08:32)
[2021-08-27] MEDS: ASPIRIN EC 81 MG TAB PO SCH (08:35)
[2021-08-27] MEDS: CEFTRIAXONE 1,000 MG in NA CHLORIDE 0.9% 50 ML IVPB SCH (08:45)
[2021-08-27] MEDS: GLUCERNA SHAKE 237 ML CAN PO SCH (09:00)
[2021-08-27] MEDS: FLUCONAZOLE 200mg IVPB 200 MG/100 ML BAG IV SCH (12:08)
--- NOTE | 2021-08-27 14:06 | P.PN ---
Subjective Date of Service: 08/27/21 Chief Complaint: Coronavirus pneumonia Subjective: No new changes, No C/O voiced (Still drowsy and nonverbal Daughter at bedside discussed withindicates family willing for hospice now. She states they do not want home with physical therapy but prefer option of hospice She had questions on overall prognosis which was answered as relatively poor given her new CVA) Physical Examination - Vital Signs Temperature: 97.5 F Blood Pressure: 113/66 Pulse: 93 Respirations: 18 Pulse Ox (%): 90 - Studies Medications List Reviewed: Yes Assessment And Plan Physician Review: Patient Assessed, Agree with Above Assessment and Plan Physician Review Additional Text: - Physical Exam General: Elderly small size female, awake, and keeps eyes closed except when asked, Respiratory: Clear to auscultation bilaterally, Normal air movement Cardiovascular: Regular rate/rhythm, Normal S1 S2, No murmurs Gastrointestinal: Normal bowel sounds, Soft and benign, Non-distended, No tenderness Musculoskeletal: No clubbing, No swelling, No tenderness Neurological: Sensation intact, Cranial nerves 3-12 intact; generalized weakness Assessment & Plan - Problems (Diagnosis) (1) Pneumonia due to 2019 novel coronavirus Current Visit: No Status: Acute (2) Diabetes mellitus type 2 in nonobese Current Visit: No Status: Acute (3) autoimmune hepatitis Current Visit: No Status: Acute (4) UTI (urinary tract infection) Current Visit: No Status: Acute (5) Acute CVA (cerebrovascular accident) Current Visit: Yes Status: Acute - Plan -Follow-up plan for home hospice We discussed again with case management to make arrangements for hospice care Patient reportedly refused for SNF, family was previously undecided about hospice versus home with physical therapy -Continue with IV antibiotics; continue with antiplatelet therapy and statin therapy; -Continue with Diflucan along with nystatin; odynophagia has improved -Continue with antidepressant, can add Ritalin if -Continue with physical therapy -Appreciate pulmonary consultation; appreciate neurology consultation 6. Continue with nebs as needed 7. O2 per protocol 8. Tolerating p.o. better, DC IVF 10. GI and DVT prophylaxis Discharge Plan: rehab Plan to discharge in: Discharge if accepted to home health or hospice - Advance Directives Does patient have a Living Will: No Does patient have a Durable POA for Healthcare: No - Code Status/Comfort Care Code Status Assessed: Yes Code Status: Full Code Physician Review: Patient Assessed, Agree with Above Assessment and Plan Critical Care: No
[2021-08-27 16:01] VITALS: BP 106/84; TEMP 98.1
[2021-08-27 16:28] VITALS: O2SAT 94
== END 2021-08-27 18:01 | disposition hospice, home (50) | DRG 177 ==
LOC: ER 10:04 → ERHOLD 14:42 → 4TH 20:21
PROVIDERS: ADMIT Internal Medicine; ATTEND Internal Medicine
DX: U07.1 COVID-19 (principal); J12.82 Pneumonia due to coronavirus disease 2019; J96.20 Acute and chronic respiratory failure, unspecified whether with hypoxia or hypercapnia; J69.0 Pneumonitis due to inhalation of food and vomit; I63.40 Cerebral infarction due to embolism of unspecified cerebral artery; K59.39 Other megacolon; N39.0 Urinary tract infection, site not specified; B37.0 Candidal stomatitis; I10 Essential (primary) hypertension; E11.9 Type 2 diabetes mellitus without complications; D69.6 Thrombocytopenia, unspecified; R53.1 Weakness; K59.00 Constipation, unspecified; K75.4 Autoimmune hepatitis; F32.A Depression, unspecified
CPT/HCPCS: 0240U; 36415; 70450; 70544; 70549; 70553; 71045; 74177; 80048; 80053; 80061; 80076; 82140; 82565; 82607; 82746; 82947; 83605; 83690; 83735; 83880; 84145; 84439; 84443; 85025; 85610; 85730; 87040; 92610; 93005; 93306; 93880; 94760; 96365; 96366; 96368; 96375; 97110; 97112; 97116; 97161; 97164; 97530; 99285; A9577; J0360; J0456; J1100; J1450; J1650; J1720; J2405; J2920; J2930; J3411; J7030; J7050; J8540; Q9967; U0003